=== PATIENT | female | born 1985 | race Caucasian/White ===

== ENCOUNTER 2017-03-11 17:50 | Day surgery (SDC) | payer BC ==
[2017-03-11] VITALS (18 sets, daily range): BP systolic 95–148; BP diastolic 51–82; PULSE 63–82; RESP 16–20; TEMP 95.8–98.6; O2SAT 96–100; Ht 175.3 cm; Wt 64.5 kg
[~2017-03-11] VITALS: Ht 175.3 cm; Wt 64.5 kg
[~2017-03-11 17:50] MED LIST: IBUP-1547 PO; PREN-92 PO
--- NOTE | 2017-03-11 18:00 | NUR ---
ARRIVAL PT AMBULATED TO ROOM 133 ACCOMPANIED BY . INITIAL ASSESSMENT DONE AT THIS TIME. VS STABLE. PT ON RA. WILL START IV. WILL PUT WRITTEN ORDERS PUT IN. WILL CONTINUE TO MONITOR.
[2017-03-11 18:24] LABS: HCT - HEMATOCRIT 40.5 % (36-46); HGB - HEMOGLOBIN 14.1 GM/DL (12-16); MEAN CORPUSCULAR HGB 30.1 UUG (26-34); MEAN CORPUSCULAR HGB CONC(MCHC 34.8 GM/DL (31-37); MEAN CORPUSCULAR VOLUME 86.5 UM3 (80-100); MEAN PLATELET VOLUME 10.4 UM3 (9.4-12.4); RED BLOOD COUNT 4.68 M/MM3 (4.00-5.20); WBC - WHITE BLOOD COUNT 7.3 T/MM3 (4.5-11.0)
[2017-03-11] MEDS ORDERED: LACT1CAP73 (18:32)
[2017-03-11] MEDS ORDERED: LR 1,000 ML IV SCH (18:45)
--- NOTE | 2017-03-11 19:07 | ANESPREOP ---
Anesthesia Record Date and Time DATE: 03/11/17 TIME: 19:05 Pre-Op Diagnosis missed Proposed Surgical Procedure suction D/C NPO since: 1200 Allergies: Coded Allergies: NKDA (Verified Allergy, Mild, 08/07/10) Ht/Wt/BMI Height: 5 ' 9.00 " Weight: 64.500 kg BMI: 21.0 kg/m2 Vital Signs Date Time Temp Pulse Resp B/P Pulse Ox O2 Delivery O2 Flow Rate FiO2 03/11/17 18:26 98.6 71 18 148/82 100 Room Air Medications Inpatient Medications Current Medications Medications (Trade) Dose Ordered Sig/Jessica Start Time Stop Time Status Last Admin Dose Admin Lactated Ringer's (Lactated Ringers) 1,000 ml @ 125 mls/hr Q8H 03/11/17 18:45 03/11/17 18:46 125 MLS/HR Lactobacillus Combination No.4 (Probiotic) 1 Each Capsule, 2 CAP HS, (Reported) Last Taken: on 03/10/17 2200 Vits W-Ca,Fe,Fa(<1MG) ( Vitamins) 1 Tab Tablet, 1 TAB PO DAILY, (Reported) Last Taken: on 03/10/17 0800 Currently on Beta Jose Alberto: No Medical/Surgical History Anesthesia PMH: Reports: Reflux (heartburn), Denies: *Diabetes, Anesthesia Reactions, Cancer, Glaucoma, Malignant Hyperthermia Smoking Status: Never smoker Has pt. smoked today?: No Use Chewing Tobacco?: No Second Hand Exposure: No Substance Use Type: does not use Alcohol Intake: none Past Surgical History Orthopedic Surgeries: No Abdominal Surgeries: No Genitourinary Surgeries: No Cardiac Surgeries: No Endocrine Surgeries: No Reproductive Surgeries: No Neurological Surgeries: No Ear Surgeries: Yes - tubes in ears in first grade Nose Surgeries: No Throat Surgeries: No Other Surgeries: No Anesthesia Adverse Reactions: FOUND none Family Hx of Anesthesia Advers: none Hx of Motion Sickness: No Pertinent Findings Laboratory Tests 03/11/17 18:14 EKG Rhythm: Sinus Rhythm Physical Exam Respiratory: Lungs clear Cardiovascular: FOUND Regular rate, rhythm, FOUND No murmur Airway Assessment Mallampati Score: I TMD: 3 Fingerbreadths Neck Extension: Good Overall Assessment: No Airway Concerns ASA: 2 Plan Anesthesia Plan: TIVA Discussion Discussed risks/options/alternatives of anesthesia and questions answered. Patient consents. Nursing pain assessment noted. Present: Spouse Attestation Statement Prior to the delivery of any anesthetic medication, I examined the patient, developed the plan, obtained the patient's consent and discussed the risk and benefits of the procedure with the patient/guardian. HALEY PRATHER CRNA Mar 11, 2017 19:07
[2017-03-11] MEDS ORDERED: PROPOFOL 500mg 50 ML IV ONE (19:12)
[2017-03-11] MEDS ORDERED: PROPOFOL 200mg 0 ML IV ONE (19:12)
[2017-03-11] MEDS ORDERED: FENTANYL 250mcg/5ml INJECTION ONE (19:15)
[2017-03-11] MEDS ORDERED: MIDAZOLAM 2mg/2ml INJECTION ONE (19:15)
[2017-03-11] MEDS ORDERED: KETAMINE 500mg/10ml INJECTION ONE (19:16)
--- NOTE | 2017-03-11 19:37 | NUR ---
OR Pt. to OR via cart accompanied by Shahla Finley RN. to waiting area.
--- NOTE | 2017-03-11 20:04 | GYNOPNOTE1 ---
FILM EXAMINER Postoperative Note Date of Operation: 03/11/17 Preoperative Diagnosis: Incomplete Postoperative Diagnosis: Same as Preoperative Procedure: Suction D&C Surgeon: Frdedie Alberto MD Anesthesia Provider: Daryl Simental CRNA Anesthesia Type: TIVA Estimated Blood Loss: minimal FREDDIE ALBERTO MD Mar 11, 2017 20:04
[2017-03-11] MEDS ORDERED: IBUP-1724 PO (20:08)
[2017-03-11] MEDS ORDERED: MORPHINE SULFATE 4 MG SYRINGE IV PRN (20:15)
[2017-03-11] MEDS ORDERED: HYDROCODONE/APAP 5 mg/325 mg TABLET PO PRN (20:15)
[2017-03-11] MEDS ORDERED: ONDANSETRON 4mg/2ml INJECTION IV PRN (20:15)
[2017-03-11] MEDS ORDERED: IBUPROFEN 200 MG TABLET PO PRN (20:15)
--- NOTE | 2017-03-11 20:24 | ANESPO ---
Post-Op Note Date 03/11/17 Time: 20:24 Status Pt Participated in Evaluation: Pt participated in person Vital Signs Date Time Temp Pulse Resp B/P Pulse Ox O2 Delivery O2 Flow Rate FiO2 03/11/17 20:08 97.0 69 20 95/51 100 Mask 6.00 Cardiovascular Function: Regular pulse Mental Status: Alert/oriented Pain Level Intensity: 0 Hydration: Taking po fluids Complications during Recovery None apparent Follow-Up Instructions Instructions Per Surgeon HALEY PRATHER CRNA Mar 11, 2017 20:24
--- NOTE | 2017-03-11 20:29 | NUR ---
ORDERS VERBAL ORDERS RECEIVED FROM JERAMIE URIBE TO GIVE PT 25MG DEMEROL IV X1.
[2017-03-11] MEDS ORDERED: MEPERIDINE 100 mg/ml VIAL IV ONE (20:30)
--- NOTE | 2017-03-11 20:45 | NUR ---
Return Pt. returned from OR via cart accompanied by Shruthi MCGINNIS. Pt. awake. Shaking, hot blanket given and shaking quit. Denies pain. No blood on v-pad.
--- NOTE | 2017-03-11 23:20 | NUR ---
Discharge Pt. met surgical discharge criteria. Medications confirmed and finalized per phone order Dr. Quan. Reviewed discharge instructions and gave packet to pt. STAN cordero.
--- NOTE | 2017-03-11 23:25 | NUR ---
Discharge Pt. discharged home with spouse. Ambulatory; accompanied to door by RN.
--- OUTSIDE RECORDS SUMMARY | 2017-03-12 09:53 | XMS REPORT | Continuity of Care Document ---
Author Author [facility] Organization [facility] Address Unknown Phone Unavailable Support Name Relationship Address Phone KENRICK ALBERTO MD Caregiver [address] [place] [address] [address] [place] [address] Unavailable KENRICK ALBERTO MD Caregiver [address] [place] [address] [address] [place] [address] Unavailable BRIANA MARINELLI Next Of Kin [address] [phone] Insurance Providers Guarantor Verito Marinelli Address [address] [place] [address] Payer [facility] Policy Number [id number] Subscriber's Name YvesMiguelBriana Kathe Relationship 01 Spouse Group Number [id number] Advance Directives Directive Response Recorded Date/Time Ordered Resuscitation Status Full Code 03/11/17 6:02pm Resuscitation Documents on File No 03/11/17 6:27pm DPOA for Healthcare Only No 03/11/17 6:27pm Living Will Yes 03/11/17 6:27pm Advanced Directive or Resuscitation Comments FULL CODE 03/11/17 6:27pm Problems Active Problems Medical Problem Onset Date Status 01/10/2015 Acute Medications Current Home Medications Medication Dose Units Route Directions Days Qty Instructions Start Date Ibuprofen 200 Mg Tablet 400-600 Mg Oral Every 6 Hours as needed for Pain 1 Tablet 03/11/17 Lactobacillus Combination No.4 (Probiotic) 1 Each Capsule 2 Cap Bedtime 03/11/17 Vits W-Ca,Fe,Fa(<1MG) ( Vitamins) 1 Tab Tablet 1 Tab Oral Daily 08/07/10 Social History Social History Problem Response Recorded Date/Time Onset Date Status Reason for Hospitalization D&C procedure 03/11/2017 10:58pm Not Applicable Not Applicable Hx Substance Use No 01/09/2015 3:27am Not Applicable Not Applicable Hx Alcohol Use No 08/07/2010 4:38am Not Applicable Not Applicable Has the pt used tobacco in the last 12 months No 03/11/2017 6:29pm Not Applicable Not Applicable Query Response Start Date Stop Date Smoking Status Never smoker Hospital Discharge Instructions Instructions: Care Instructions: I was in the hospital because (patient own words): "GET CLEANED OUT FROM HAVING A MISCARRIAGE" Discharge Diet: regular Discharge Activity: normal Follow Up Appointments: 2-3wks Pending Lab / Results: Will review at f/u apt Expected Signs/Symptoms: per instruction sheet Notify Physician If: per instruction sheet During Business Hours:: Please call the physician's office at [phone] After Business Hours:: Please call [phone] and have the expeller operator page the physician. Pain Management/Treatment: per instruction sheet Pain Scale Utilized to Educate Patient: 0-10 Pain Scale Wound/Incision Care: n/a Condition at time of discharge: Good Plan of Care Discharge Date 03/11/17 11:25pm Instructions/Education Provided Dilation and Curettage (DC) Prescriptions See Medication Section Functional Status Query Response Date Recorded Mobility Status Ambulatory March 11, 2017 6:33pm Assistive Devices Standard Walker March 11, 2017 6:33pm Activity Limitations None March 11, 2017 6:33pm Feeding Ability Independent March 11, 2017 6:33pm Toileting Ability Independent March 11, 2017 6:33pm Grooming Ability Independent March 11, 2017 6:33pm Dressing Ability Independent March 11, 2017 6:33pm Driving Ability Independent March 11, 2017 6:33pm Housework Ability Independent March 11, 2017 6:33pm Meal Preparation Ability Independent March 11, 2017 6:33pm Stair Climbing Ability Independent March 11, 2017 6:33pm Ability to complete ADL's impeded by Impaired Mobility March 11, 2017 6:33pm Cognitive/Perceptual Impairments None March 11, 2017 6:33pm Preferred Method of Learning Reading March 11, 2017 6:33pm Allergies, Adverse Reactions, Alerts Allergen Type Severity Reaction Status Last Updated NKDA Allergy Mild Active 08/07/10 Immunizations Query Response on File Recorded Date/Time Hx Influenza Vaccination No 03/11/17 6:29pm Hx Pneumococcal Vaccination No 03/11/17 6:29pm Hx Influenza Vaccination No 03/11/17 6:29pm Vital Signs Acute Vital Signs Vital Response Date/Time Temperature (Fahrenheit) 95.8 deg F (96.8 - 99.1) 03/11/2017 10:44pm Temperature (Calculated Celsius) 35.62973 degrees C (36.0 - 37.3) 03/11/2017 10:44pm Temperature Source Oral 03/11/2017 10:44pm Pulse Rate (adult) 63 bpm (60 - 100) 03/11/2017 10:59pm Respiratory Rate 16 breaths/min (10 - 20) 03/11/2017 10:59pm O2 Sat by Pulse Oximetry 96 % (90 - 100) 03/11/2017 10:59pm Oxygen Delivery Method Room Air 03/11/2017 10:59pm Oxygen Delivery Method Room Air 03/11/2017 8:35pm Oxygen Flow Rate 6.00 L/min 03/11/2017 8:10pm Blood Pressure 111/67 mm Hg 03/11/2017 10:59pm Blood Pressure Source Automatic Cuff 03/11/2017 10:59pm Height (Feet) 5 feet 03/11/2017 6:26pm Height (Inches) 9.00 inches 03/11/2017 6:26pm Weight (Kilograms) 64.500 kg 03/11/2017 6:26pm Body Mass Index (BMI) 21.0 03/11/2017 6:26pm Results Laboratory Results Test Name Result Units Flags Reference Collection Date/Time Result Date/ Time Comments White Blood Count 7.3 T/MM3 4.5-11.0 03/11/2017 6:14pm 03/11/2017 6: 24pm Red Blood Count 4.68 M/MM3 4.00-5.20 03/11/2017 6:14pm 03/11/2017 6: 24pm Hemoglobin 14.1 GM/DL 12-16 03/11/2017 6:pm 03/11/2017 6:24pm Hematocrit 40.5 % 36-46 03/11/2017 6:03/11/2017 6:24pm Mean Corpuscular Volume 86.5 UM3 80-100 03/11/2017 6:pm 03/11/2017 6: 24pm Mean Corpuscular Hemoglobin 30.1 UUG 26-34 03/11/2017 6:pm 2016 6:24pm Mean Corpuscular Hemoglobin Concent 34.8 GM/DL 31-37 03/11/2017 6:pm 03/11/2017 6:24pm RDW Standard Deviation 37.2 FL 36.9-50.2 03/11/2017 6:14pm 03/11/2017 6 :24pm Platelet Count 224 T/MM3 130-400 03/11/2017 6:14pm 03/11/2017 6:24pm Mean Platelet Volume 10.4 UM3 9.4-12.4 03/11/2017 6:14pm 03/11/2017 6: 24pm Procedures No known history of procedures. Encounters Encounter Location Arrival/Admit Date Discharge/Depart Date Attending Provider Registered [facility] Day Care [facility] 03/11/17 5:50pm KENRICK ALBERTO MD
--- OUTSIDE RECORDS SUMMARY | 2017-03-12 09:53 | XMS REPORT | Continuity of Care Document ---
Author Author [facility] Organization [facility] Address Unknown Phone Unavailable Support Name Relationship Address Phone KENRICK ALBERTO MD Caregiver [address] [place] [address] [address] [place] [address] Unavailable KENRICK ALBERTO MD Caregiver [address] [place] [address] [address] [place] [address] Unavailable BRIANA MARINELLI Next Of Kin [address] [id number] Insurance Providers Guarantor Verito Marinelli Address [address] [place] [address] Payer [facility] Policy Number [id number] Subscriber's Name YvesMiguelBriana Kathe Relationship 01 Spouse Group Number [id number] Advance Directives Directive Response Recorded Date/Time Ordered [...] Hours:: Please call the physician's office at [phone] After Business Hours:: Please call [phone] and have the paper cup machine operator page the physician. Pain Management/Treatment: per instruction sheet Pain Scale Utilized to Educate Patient: 0-10 Pain Scale Wound/Incision Care: n/a Condition at time of discharge: Good Plan of Care Discharge Date 03/11/17 11:25pm Disposition 01 DISCHARGED HOME, SELF-CARE Instructions/Education Provided Dilation and Curettage (DC) Prescriptions See Medication Section Care Plan and Goals See Discharge Instructions Section Functional Status Query Response Date Recorded [...] - 99.1) 03/11/2017 10:44pm Temperature (Calculated Celsius) 35.17138 degrees C (36.0 - 37.3) 03/11/2017 10:44pm [...] 03/11/2017 6:24pm Hematocrit 40.5 % 36-46 03/11/2017 6:pm 03/11/2017 6:24pm Mean Corpuscular Volume 86.5 UM3 80-100 03/11/2017 6:14pm 03/11/2017 6: 24pm Mean Corpuscular Hemoglobin 30.1 UUG 26-34 03/11/2017 6:14pm 2016 6:24pm Mean Corpuscular Hemoglobin Concent 34.8 GM/DL 31-37 03/11/2017 6:pm 03/11/2017 6:24pm RDW Standard Deviation 37.2 FL 36.9-50.2 03/11/2017 6:14pm 03/11/2017 6 :24pm Platelet Count 224 T/MM3 130-400 03/11/2017 6:14pm 03/11/2017 6:24pm Mean Platelet Volume 10.4 UM3 9.4-12.4 03/11/2017 6:14pm 03/11/2017 6: 24pm Procedures No known history of procedures. Encounters Encounter Location Arrival/Admit Date Discharge/Depart Date Attending Provider Discharged Inpatient (obs) [facility] 03/11/17 5:50pm 03/11/17 11 :25pm KENRICK ALBERTO MD
--- NOTE | 2017-03-12 11:23 | OPNOTEF ---
DATE OF SURGERY: 03/11/2017 PREOPERATIVE DIAGNOSIS: 32-year-old white female incomplete AB. POSTOPERATIVE DIAGNOSIS: same PROCEDURE: Suction D&C. EBL: Minimal ANESTHESIA: TIVA by Daryl Simental CRNA SURGEON: Freddie Quan MD COMPLICATIONS: None INDICATION This patient was seen as an add-on appointment to my office this afternoon. She has been bleeding for four days and it is getting worse. She is now soaking through several pads an hour. Incomplete AB was confirmed and so she was set up for a D&C this evening as soon as she was 8 hours NPO. DESCRIPTION OF PROCEDURE After adequate anesthesia the patient was prepped and draped in the low lithotomy position. A heavy weighted speculum was placed posteriorly and an anterior retractor was used to visualize the cervix which was grasped at the 12 o'clock position. Cervix was dilated to 21 Walker and then a #7 flexible curette was introduced and the endometrial cavity was curettaged. A small amount of tissue was obtained. Sharp curette was then used to ensure that we were down to the appropriate layer. Additional pass was made with a suction curette. This was repeated x1. Then the procedure was complete and all instruments were removed and the patient went to recovery room in stable condition. JOSESITO
== END 2017-03-11 23:25 | disposition home or self-care (01) ==
LOC: UNDOADMOB 17:50 → SRG 17:50 → SCU 17:50 → UNDODISOB 23:25 → EDSTATUS 03-12 09:49
PROVIDERS: ATTEND Obstetrics & Gynecology
DX: O03.4 Incomplete spontaneous abortion without complication (principal); J30.2 Other seasonal allergic rhinitis
CPT/HCPCS: 59812; 85027; 96360; J2250; J2405; J2704; J3010; J7120

== ENCOUNTER 2018-01-08 16:42 | Inpatient (IN) ==
--- OUTSIDE RECORDS SUMMARY | 2018-01-08 16:46 | External Medical Summary | Referral Summary ---
:1985 Author Organization [facility] Address [address] [place] [address] Care Team Providers Name Role Phone No PCP, [facility] Primary Care Physician Encounter [facility] [id number] Date(s): 07/24/16 - 07/24/16 [facility] [address] [place] [address] - us Discharge Diagnosis: Pain, abdominal Discharge Disposition: 01-Home or Self Care Attending Physician: Provider, Immediate Care Attending Physician: Varinder Lowe APRN Admitting Physician: Provider, Immediate Care Vital Signs Most recent to oldest [Reference Range]: 1 Temperature Oral [35.8-37.3 degC] 36.8 degC (07/24/16 10:46 AM) Peripheral Pulse Rate [60-100 bpm] 65 bpm (07/24/16 10:46 AM) Blood Pressure [90-140/60-90 mmHg] 155/93 mmHg *HI* (07/24/16 10:46 AM) SpO2 99 % (07/24/16 10:46 AM) Problem List No data available for this section Allergies, Adverse Reactions, Alerts No Known Medication Allergies Medications Antifungal Antifungal, 0 Refill(s) Start Date: 11/09/15 Status: OrderedFlonase sprays, Nasal, Daily, 0 Refill(s) Start Date: 07/24/16 Status: OrderedHeather 0.35 mg oral tablet 0.35 mg 1 tabs, Oral, Daily, 0 Refill(s) Start Date: 10/28/15 Status: OrderedZyrTEC Daily, 0 Refill(s) Start Date: 07/24/16 Status: Ordered Results No data available for this section Immunizations No data available for this section Procedures No data available for this section Social History Social History Type Response Smoking Status Never smoker Assessment and Plan Extracted from: Title: Office Visit Note Author: Varinder Lowe APRN Date: 07/24/16 Assessment/Plan 1.Pain, abdominal Instructed patient on medication, use, common side effects, and administration. Discussed proper OTC medication, including [ Tylenol or ibuprofen], for symptomatic relief. Instructed patient if symptoms worsen or new symptoms arise to seek medical attention here or at the ER. Instructed patient if symptoms do not improve follow up with PCP in 2-3 days. Patient voiced unde rstanding and agreed with treatment plan. Patient dismissed in stable condition.
--- OUTSIDE RECORDS SUMMARY | 2018-01-08 16:46 | External Medical Summary | Continuity of Care Document ---
:1985 Author Organization [facility] Address [address] [place], [place] [id number] Phone Support Name Relationship Address Phone Indio Marinelli spouse [address] [facility] [phone] [place] [address] Allergies, Adverse Reactions, Alerts Substance Reaction Severity Status No Known Drug Allergies Unknown Active Medications Medication Instructions Dosage Effective Dates Status Comments (start - stop) PREVACID (unknown take 1 capsule by - Active strength) oral route every day before a meal Probiotic 10 - Active billion cell capsule 28 mg take 1 tablet by Not Available - Active iron-800 mcg oral route every tablet day Zyrtec-D 5 mg-120 take 1 tablet by Not Available - Active mg tablet,extended oral route every 12 release hours Problems Condition Effective Dates (start - stop) Clinical Status 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 brim 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 exam (general) - (routine) w/o abn findings Encounter for suprvsn of normal - , third trimester 32 weeks gestation of - 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 Encntr screen for infections w sexl - mode of transmiss Encounter for screening for oth - infec/parastc diseases Encounter for suprvsn of normal - , first trimester Encounter for screening of - mother 10 weeks gestation of - 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 Threatened Encntr for brim stiffener exam (general) (routine) w/o abn findings Pap Smear Screening, Cervix - Pap Smear Screening, Cervix - Encounter for suprvsn of normal - , second trimester 24 weeks gestation of - Encounter for suprvsn of normal - , second trimester 14 weeks gestation of - Encounter for suprvsn of normal - , second trimester Encounter For Screening For - Malformations 20 weeks gestation of - Encounter for suprvsn of normal - , second trimester 18 weeks gestation of - Encounter for suprvsn of normal - , second trimester 20 weeks gestation of - Encounter for suprvsn of normal - , third trimester 34 weeks gestation of - Encounter for suprvsn of normal - , third trimester 30 weeks gestation of - Encounter for suprvsn of normal - , third trimester 28 weeks gestation of - Active Procedures Procedure Date OB Visit No Charge Results Test Name Date and Time Measure Units Reference Range Abnormal Flag Comments Unknown Advance Directives Directive Yes / No Effective Date File Name Unknown Encounters Encounter Practice Location Reason(s) Diagnoses Date Provider Care Team Description For Visit Members Rosalina Colmenares Encounter for Nov- Pastora Referring In Womens suprvsn of normal 9-201 Elisabeth. Provider: Health CT, , third 8 700 [facility] Box weeks Medical Kadeem Delacruz, 1522, gestation of [place] Amna [place], Everardo Goel [facility], 120, [place] [id number], [facility] 120, Darrian CHILD, tel:[phone] [place] [address] , . [id number]. tel: tel:[phone] Rosalina Colmenares Encounter for Oct- Kadeem Referring In Womens suprvsn of normal 6-201 Freddie. 700 Provider: Health CT, , third 7 Medical Freddie PO Box [email or web address] weeks Center Kadeem R, 1522, gestation of Ever[place] Goel 700 [place], 120, Medical [place]rian [facility] [id number], [facility], [place] [id number] [place], tel:+ , . [place] tel: [phone]. [id number] tel:[phone] Rosalina Colmenares Encounter for Dec-1 Kadeem Referring In Womens suprvsn of normal 2-201 Freddie. 700 Provider: Health PA, , third 7 Medical Freddie PO Box [email or web address] weeks Center Kadeem R, 1522, gestation of Everardo Goel, 120, Medical [place] [facility] [id number], [place], [facility] 120, [place] [id number] [place], tel: , [place]. [place], tel: [phone]. [id number] tel:[phone] Rosalina Colmenares Encounter for Nov-2 Kadeem Referring In Womens suprvsn of normal 8-201 Freddie. 700 Provider: Health PEDRO, , third 7 Medical Freddie PO Box [email or web address] weeks Center Kadeem R, 1522, gestation of Everardo Goel, 120, Medical [place] [facility] [id number], [place], [facility] 120, [place] [id number] [place], tel: , [place]. [place] tel: [phone]. [id number] tel:[phone] Rosalina Colmenares Encounter for Nov-0 Kadeem Referring In Womens suprvsn of normal 2-201 Freddie. 700 Provider: Wendy VASQUEZ, , second 7 Medical Freddie PO Box [id number] weeks Center Kadeem R, 1522, gestation of Everardo Goel, 120, Medical Darrian [facility] [id number], [place], [facility] 120, [place] [id number] [place], tel: , [place]. [place] tel: [phone]. [id number] tel:[phone] Rosalina Colmenares Encounter for Oct-0 Kadeem Referring In Womens suprvsn of normal 5-201 Freddie. 700 Provider: Health PEDRO, , second 7 Medical Freddie PO Box [email or web address] weeks Center Kadeem R, 1522, gestation of Everardo Goel, 120, Medical [place] [facility] [id number], [place], Ever[place] 120, [place] [id number] [place], tel: , . [place] tel:[phone]. [id number] tel:[phone] Rosalina Colmenares Encounter for Oct-0 Kadeem Referring In Womens Ultrasound suprvsn of normal 5-201 Jamul. 700 Provider: Wendy VASQUEZ, , second 7 [facility] trimesterEncounte [place] Kadeem R, 1522, r For Everardo Goel, Screening For 120, Medical [place], [id number] Darrian [place] [id number], weeks gestation MATEUSZ, Everardo 120, [place] of [id number] [place], tel: , [place]. [place], tel: [phone]. [id number] tel:[phone] Rosalina Colmenares Encounter for Sep-2 Kadeem Referring In Womens suprvsn of normal 1-201 Jamul. 700 Provider: Wendy VASQUEZ, , second 7 [facility] [id number] weeks Center Kadeem R, 1522, gestation of Everardo Goel, 120, Medical [place] [facility] [id number], [place], [place] 120, [place] [id number] [place], tel: , [place]. [place] tel: [phone]. [id number] tel:[phone] Rosalina Colmenares Encounter for Aug-2 Kadeem Referring In Womens suprvsn of normal 4-201 Jamul. 700 Provider: Wendy VASQUEZ, , second 7 [facility] [id number] weeks Center Kadeem R, 1522, gestation of Everardo Goel, 120, Medical [place] [facility] [id number], [place], [place] 120, [place] [id number] [place], tel: , [place]. [place] tel: [phone]. [id number] tel:[phone] Rosalina Colmenares Encntr screen for Jericho-2 Kadeem Referring In Womens infections w sexl 6-201 Jamul. 700 Provider: Wendy VASQUEZ, mode of 7 [facility] transmissEncounte [place] Kadeem R, 1522, r for screening Everardo Goel, for oth 120, Medical MATEUSZ, infec/parastc [place] [id number], diseasesEncounter [place], Ever[place] 120, [place] for suprvsn of [id number] [place], tel: normal , , [place]. [place], first tel: [phone]. trimesterEncounte [id number] tel: r for [phone] screening of weeks gestation of Associates [place]rian Incomplete Apr-1 Kadeem Referring In Womens spontaneous Jamul. 700 Provider: Wendy VASQUEZ, without 7 Medical Jamul PO Box complication Center Kadeem Delacruz, 1522, , [address], 120, Medical MATEUSZ, [facility] [id number], [place], [facility] 120, [place] [id number] [place], tel: , [place]. [place] tel: [phone]. [id number] tel:[phone] Rosalina Colmenares Incomplete Apr-1 Kadeem Referring In Womens spontaneous Jamul. 700 Provider: Wendy VASQUEZ, without 7 Medical [facility] Box complication Center Kadeem Delacruz, 1522, , [place] [address] [place], [facility], Medical Darrian [facility] [id number], [place], [facility] 120, [place] [id number] [place], tel: , [place]. [place] tel: [phone]. [id number] tel:[phone] Rosalina Colmenares Threatened Apr-1 Kadeem Referring In Womens Jamul. 700 Provider: Wendy VASQUEZ, 7 Medical Jamul PO Box [place] Kadeem Delacruz, 1522, , [address], 120, Medical [place] [facility] [id number], [place], [facility] 120, [place] [id number] [place], tel: , . [place] tel: [phone]. [id number] tel:[phone] Rosalina Colmenares Encntr for brim stiffener Nov-0 Matos Referring In Womens exam (general) 2-201 Elvira. Provider: Health PEDRO, (routine) w/o abn 6 700 [facility] Box findingsPap Smear Medical Kadeem Delacruz, 1522, Screening, Cervix Center [facility] Dr [place], [facility], 120, [place] [id number], Dar[place], [facility] 120, Dar[place] CHILD, tel:[phone] [place] , [place]. [id number]. tel: tel: [phone] Rosalina Colmenares Encntr for brim stiffener Aug- Kadeem Referring In Womens exam (general) 1- Jamul. 700 Provider: Wendy VASQUEZ, (routine) w/o abn 5 Medical [facility] Box findingsPap Smear Center Carlo Cherry, 1522, Screening, Cervix , [facility] Amna Colón, 120, Medical [place] [facility] [id number], [place], [facility] 120, [place] [id number] [place], tel: , . [place], tel: [phone]. [id number] tel:[phone] Rosalina Colmenares Kadeem Referring In Womens 9-201 Jamul. 700 Provider: Wendy VASQUEZ, 5 [facility] Box [place] Kadeem Delacruz 1522, Dr Everardo Amna Colón, 120, Medical [place] [facility] [id number], [place], [facility] 120, [place] [id number] [place], tel: , [place]. [place], tel: [phone]. [id number] tel:[phone] Rosalina Colmenares Kadeem Referring In Womens 6-201 Jamul. 700 Provider: Wendy VASQUEZ, 4 [facility] Box [place] Kadeem Delacruz 1522, Dr Everardo Amna Colón, 120, Medical Darrian [facility] [id number], [place], [facility] 120, [place] [id number] [place], tel: , . [place], tel: [phone]. [id number] tel:[phone] Rosalina Colmenares Aug- Kadeem In Womens 6-201 Jamul. 700 Wendy VASQUEZ, 0 [facility] PO Box Center 1522, Everardo Goel, 120, [place] CHILD [id number], [place], [place] [id number] tel: , . tel: [phone] Family History Family Member Diagnosis Age At Onset Maternal Grandmother Diabetes mellitus Maternal Grandfather Congestive Heart Failure Maternal grandmother Congestive Heart Failure Immunizations Vaccine Date Status Comments Tdap completed Source: New Immunization Record Influenza, injectable, completed Source: New Immunization Record quadrivalent, preservative free, 3 yrs or older Influenza, seasonal, injectable, completed Source: New Immunization Record preservative free, 3 yrs or older Tdap completed Source: New Immunization Record Influenza, injectable, completed Source: New Immunization Record quadrivalent, preservative free, 3 yrs or older Payers Payer name Insurance type Covered green party ID Authorization(s) [facility] [id number] [facility] BL [id number] [facility] [place] BL [id number] [facility] [place] [id number] [facility] [place] [id number] [facility] BL [id number] Social History Type Description Quantity Date Captured Alcohol Use Details No Caffeine Use Details Unknown Tobacco Use Status Unknown Smoking Status Never smoker Vital Signs Date / Height Weight BMI Pulse Blood Temperature Respiratory Body Head BMI Time: Rate Pressure Rate Surface Circumference percentile Area Unknown Chief Complaint And Reason For Visit Unknown Chief Complaint And Reason For Visit Reason For Referral Reason For Referral Unknown Plan Of Care Date Type Action Status Appointment Elaina Marinelli BOOKED Future Order: Lab Order Pap Smear With HPV Reflex If ASCUS Ordered (WPMPap1) Future Order: Lab Order Pap Smear With HPV Reflex If ASCUS Ordered (WPMPap1) Future Order: Radiology Order Complete OB Ultrasound > 14 Ordered Weeks ([id number]) Date Type Problem Goal Intervention Status Start Date Unknown. History Of Present Illness Encounter Date Complaint History Of Present Illness This patient has no known history of present illness Functional Status Encounter Date Functional Assessment Cognitive Assessment Unknown Medications Administered Medication Instructions Dosage Effective Dates (start - stop) Status Comments Drug Treatment Unknown Instructions Date Instruction Additional Information environmental / work hazards travel tobacco (ask, advise, assess, assist and arrange) alcohol illicit / recreational drugs use of any medications (including supplements, vitamins, herbs, OTC drugs) smoking counseling domestic violence seat belt use childbirth classes / hospital facilities hospital registration genetic testing Zika virus assessment & precautions new ob handbook [facility] docs HIV and other routine tests risk factors identified by history anticipated course of care nutrition and weight gain counseling, special diet toxoplasmosis precautions (cats / raw meat) sexual activity exercise indications for ultrasound influenza vaccine
--- OUTSIDE RECORDS SUMMARY | 2018-01-08 16:46 | External Medical Summary | Continuity of Care Document ---
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 Encntr screen for infections w sexl - mode of transmiss Encounter for screening for oth - infec/parastc diseases Encounter for suprvsn of normal - , first trimester Encounter for screening of - mother 10 weeks gestation of - Encounter for suprvsn of normal - , third trimester 32 weeks gestation of - 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 Threatened 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) (routine) w/o abn findings Pap [...] suprvsn of normal - , third trimester Encounter For Screening For - Streptococcus B 36 weeks gestation of - Encounter for suprvsn of normal - , third trimester 28 weeks gestation of - Active Procedures Procedure Date OB Visit No Charge - 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 700 Provider: Health PA, , third 8 Medical Freddie [facility] Kadeem R, 1522, r For Ever[place] Goel 700 [place], Screening For 120, Medical [place], Streptococcus B[address] [id number], weeks gestation MATEUSZ Everardo 120, [place] of [id number] Dar[place], tel: , [place], [address] tel: [phone]. [id number] tel:[phone] Rosalina Colmenares Encounter for Hernan-0 Pastora Referring In Womens suprvsn of normal 9-201 Elisabeth. Provider: Health PEDRO, , third 8 700 Fredide PO Box weeks Medical Kadeem Delacruz, 1522, gestation of Center Amna Colón, , Everardo [facility], 120, Center [id number], Dar[place], [facility] 120, [place] CHILD, tel: [phone] [place], , [place]. [id number]. tel: tel: [phone] Rosalina Colmenares Encounter for Dec-2 Kadeem Referring In Womens suprvsn of normal 6-201 Freddie. 700 Provider: Health PEDRO, , third 7 Medical Freddie PO Box [email or web address] weeks Center Kadeem Delacruz, 1522, gestation of Everardo Goel, 120, Medical Darrian [facility] [id number], [place], [facility] 120, [place] [id number] [place], tel: , [place]. [place], tel: [phone]. [id number] tel:[phone] Rosalina Colmenares Encounter for Dec-1 Kadeem Referring In Womens suprvsn of normal 2-201 Freddie. 700 Provider: Health PEDRO, , third 7 Medical Freddie PO Box weeks Center Kadeem Delacruz, 1522, gestation of Everardo Goel, 120, Medical Darrian [facility] [id number], [place], [facility] 120, [place] [id number] [place], tel: , [place]. [place], tel: [phone]. [id number] tel:[phone] Rosalina Colmenares Encounter for Nov-2 Kadeem Referring In Womens suprvsn of normal 8-201 Freddie. 700 Provider: Health PEDRO, , third 7 Medical Freddie PO Box [id number] weeks Center Kadeem Delacruz, 1522, gestation of Everardo Goel, 120, Medical [place] CHILD, [place] [id number], [place], [facility] 120, [place] [id number] [place], tel: , [place]. [place] tel: [phone]. [id number] tel:[phone] Rosalina Colmenares Encounter for Nov-0 Kadeem Referring In Womens suprvsn of normal 2-201 Polk. 700 Provider: Health PA, , second 7 Medical Freddie PO Box [email or web address] weeks Center Kadeem R, 1522, gestation of Everrado Goel, 120, Medical [place] CHILD, [place] [id number], [place], Everardo 120, [place] [id number] [place], tel:+3162 , [place]. [place], tel: [phone]. [id number] tel:[phone] Rosalina Colmenares Encounter for Oct-0 Kadeem Referring In Womens suprvsn of normal 5-201 Freddie. 700 Provider: Health PA, , second 7 Medical Freddie PO Box [id number] weeks Center Kadeem R, 1522, gestation of Everardo Goel, 120, Medical Darrian [facility] [id number], [place], Everardo 120, [place] [id number] Dar[place], tel:+2 , [place]. [place], tel: [phone]. [id number] tel:[phone] Rosalina Colmenares Encounter for Oct-0 Kadeem Referring In Womens Ultrasound suprvsn of normal 5-201 Polk. 700 Provider: Health PA, , second 7 Medical Freddie PO Box trimesterEncounte Center Kadeem R, 1522, r For Everardo Goel, Screening For 120, Medical MATEUSZ, [id number] [facility] [id number], weeks gestation [place], Everardo 120, [place] of [id number] [place], tel:+ , [place]. [place], tel: [phone]. [id number] tel:[phone] Rosalina Colmenares Encounter for Sep-2 Kadeem Referring In Womens suprvsn of normal 1-201 Freddie. 700 Provider: Health PA, , second 7 Medical Freddie PO Box [id number] weeks Center Kadeem R, 1522, gestation of Everardo Goel, 120, Medical Darrian [facility] [id number], [place], Ever[place] 120, [place] [id number] [place], tel:+3162 , [place]. [place], tel: [phone]. [id number] tel:[phone] Rosalina Colmenares Encounter for Aug-2 Kadeem Referring In Womens suprvsn of normal 4-201 Polk. 700 Provider: Health PEDRO, , second 7 Medical Freddie PO Box [id number] weeks Center Kadeem Delacruz, 1522, gestation of Everardo Goel, 120, Medical Darrian [facility] [id number], [place], Ever[place] 120, [place] [id number] Darrian, tel: , [place]. [place], tel: [phone]. [id number] tel:[phone] Rosalina Colmenares Encntr screen for Jericho-2 Kadeem Referring In Womens infections w sexl 6-201 Polk. 700 Provider: Health PEDRO, mode of 7 Medical Freddie PO Box transmissEncounte [place] Kadeem Delacruz, 1522, r for screening Everardo Goel, for oth 120, Medical [place], infec/[facility]astc [facility] [id number], diseasesEncounter [place], Ever[place] 120, [place] for suprvsn of [id number] Darrian, tel: normal , , [place]. [place], first tel:[phone]. trimesterEncounte [id number] tel: r for [phone] screening of [id number] weeks gestation of Rosalina Colmenares Incomplete Apr-1 Kadeem Referring In Womens spontaneous 8-201 Polk. 700 Provider: Health PEDRO, without 7 Medical Freddie PO Box complication Center Kadeem Delacruz, 1522, Everardo Goel, 120, Medical Darrian [facility] [id number], [place], [place] 120, [place] [id number] Dar[place], tel: , [place]. [place], tel: [phone]. [id number] tel:[phone] Rosalina Colmenares Incomplete Apr-1 Kadeem Referring In Womens spontaneous 8-201 Polk. 700 Provider: Health PEDRO, without 7 Medical Freddie PO Box complication Center Kadeem Delacruz, 1522, Everardo Goel, 120, Medical Darrian [facility] [id number], [place], Ever[place] 120, [place] [id number] [place], tel: , [place]. [place] tel: [phone]. [id number] tel:[phone] Rosalina Wayne Feb- Kadeem Referring In Womens 7- Polk. 700 Provider: Wendy VASQUEZ, 7 [facility] Box [place] Kadeem Delacruz, 1522, , Everardo [facility] [place], 120, Medical Darrian [facility] [id number], [place], [facility] 120, [place] [id number] Darrian, tel:+ , [place]. [place], tel: [phone]. 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 Provider: Health PEDRO, (routine) w/o abn [address] [place] [address] findingsPap Smear [facility] Kadeem Delacruz, 1522, Screening, Cervix Center [facility] Dr [place], [facility], 120, [place] [id number], [place], [facility] 120, [place] Darrian CHILD, tel: [phone] [place], , [place]. [id number]. tel: tel:[phone] Rosalina Carvalhor for graduate research assistant Oct-2 Kadeem Referring In Womens exam (general) Polk. 700 Provider: Wendy VASQUEZ, (routine) w/o abn 5 [facility] findingsPap Smear Center Carlo J, 1522, Screening, Cervix , [address], 120, Medical Darrian [facility] [id number], [place], [facility] 120, [place] [id number] Darrian, tel: , [place]. [place], tel: [phone]. [id number] tel:[phone] Rosalina Colmenares Hernan-2 Kadeem Referring In Womens 9-201 Polk. 700 Provider: Wendy VASQUEZ, 5 [facility] Box [place] Kadeem Delacruz, 1522, , [place] [address] [place], 120, Medical Darrian [facility] [id number], [place], Everardo 120, [place] [id number] Darrian, tel:3162 , [place]. [place], tel: [phone]. [id number] tel:[phone] Rosalina Colmenares Nov-0 Kadeem Referring In Womens 6-201 Polk. 700 Provider: Health PA, 4 Medical [facility] Box [place] Kadeem R, 1522, , Everardo 700 [place], 120, [facility], [facility] [id number], [place], [place] [address], [id number] Darrian, tel: , . [place], [address] tel: [phone]. [id number] tel:[phone] Rosalina Colmenares Aug- Kadeem In Womens 6-201 Polk. 700 Health PA, 0 Medical Box Center [address], , Everardo Colón, 120, [place], Darrian, [id number], [place], [id number] tel: , . [phone] tel: [phone] Family History Family Member Diagnosis Age At [...] Insurance type Covered green party ID Authorization(s) [facility] [id number] [facility] [place] [id number] [facility] [place] [id number] [facility] [place] [id number] [facility] [place] [id number] [facility] [id number] Social History Type Description Quantity Date Captured Alcohol Use Details No Caffeine Use Details Unknown Tobacco Use Status Unknown Smoking Status Never smoker Vital Signs Date / Height Weight BMI Pulse Blood Temperature Respiratory Body Head BMI Time: Rate Pressure Rate Surface Circumference percentile Area 184.60 28.0 lbs 7 mm[Hg] 9:40 kg/m AM eter (2) Chief Complaint And Reason For Visit Unknown Chief Complaint And Reason For Visit Reason For Referral Reason For Referral Unknown Plan Of Care Date Type Action Status Appointment Elaina Marinelli TAYLOR Future Order: Lab Order Pap Smear With HPV Reflex If ASCUS Ordered (WPMPap1) Future Order: Lab Order Pap Smear With HPV Reflex If ASCUS Ordered (WPMPap1) Future Order: Radiology Order Complete OB Ultrasound > 14 Ordered Weeks ([id number]) Date Type Problem Goal Intervention Status Start [...]
--- OUTSIDE RECORDS SUMMARY | 2018-01-08 16:47 | External Medical Summary | Continuity of Care Document ---
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 700 Provider: Health PA, , third 7 Medical Freddie PO Box weeks [place] Kadeem Delacruz, 1522, gestation of Everardo Goel, 120, Medical [facility] [id number], [place], [facility] 120, [place] [id number] Darrian, tel: , [facility], tel: [phone]. [id number] tel:[phone] Rosalina Colmenares Encounter for Oct- Kadeem Referring In Womens suprvsn of normal 2-201 Freddie. 700 Provider: Health PA, , third 7 Medical Freddie PO Box [id number] weeks Center Kadeem Delacruz, 1522, gestation of Everardo Goel, 120, Medical [place]rian [facility] [id number], [place], [facility] 120, [place] [id number] Darrian, tel: , [facility], tel: [phone]. [id number] tel:[phone] Rosalina Colmenares Encounter for Nov-2 Kadeem Referring In Womens suprvsn of normal 8-201 Freddie. 700 Provider: Health PA, , third 7 Medical Freddie PO Box weeks Center Kadeem R, 1522, gestation of Everardo Goel, 120, Medical [place]rian [facility] [id number], [place], [place] 120, [place] [id number] Dar[place], tel: , [place]. [place], tel: [phone]. [phone] tel:[phone] Rosalina Colmenares Encounter for Nov-0 Kadeem Referring In Womens suprvsn of normal 2-201 Freddie. 700 Provider: Health PEDRO, , second 7 Medical Freddie PO Box [id number] weeks Center Kadeem R, 1522, gestation of Everardo Goel, 120, Medical Drarian [facility] [id number], [place], [place] 120, [place] [id number] [place], tel: , [place]. [place], tel: [phone]. [id number] tel:[phone] Rosalina Colmenares Encounter for Oct-0 Kadeem Referring In Womens suprvsn of normal 5-201 Freddie. 700 Provider: Health PEDRO, , second 7 Medical Freddie PO Box weeks Center Kadeem R, 1522, gestation of Ever[place] Goel, 120, Medical [place] [facility] [id number], [place], [place] 120, [place] [id number] [place], tel: , [place]. [place], tel: [phone]. [id number] tel:[phone] Rosalina Colmenares Encounter for Oct-0 Kadeem Referring In Womens Ultrasound suprvsn of normal 5-201 Freddie. 700 Provider: Health PEDRO, , second 7 Medical Freddie PO Box trimesterEncounte Center Kadeem R, 1522, r For Ever[place] Goel, Screening For 120, Medical MATEUSZ, [id number] [facility] [id number], weeks gestation MATEUSZ, [place] 120, [place] of [id number] Darrian, tel: , [place]. [place], tel: [phone]. [id number] tel:[phone] Rosalina Colmenares Encounter for Sep-2 Kadeem Referring In Womens suprvsn of normal 1-201 [place]. 700 Provider: Health PEDRO, , second 7 Medical [facility] Box [id number] weeks Center Kadeem R, 1522, gestation of Everardo Goel, 120, Medical Darrian [facility] [id number], [place], [place] 120, [place] [id number] [place], tel: , [place]. [place], tel: [phone]. [id number] tel:[phone] Rosalina Colmenares Encounter for Aug-2 Kadeem Referring In Womens suprvsn of normal 4-201 [place]. 700 Provider: Health PEDRO, , second 7 Medical [facility] Box [email or web address] weeks Center Kadeem R, 1522, gestation of Ever[place] Goel, 120, Medical [place] [facility] [id number], [place], [place] 120, [place] [id number] [place], tel: , [place]. [place], tel: [phone]. [id number] tel:[phone] Rosalina Colmenares Encntr screen for [place]-2 Kadeem Referring In Womens infections w sexl 6-201 [place]. 700 Provider: Health PEDRO, mode of 7 [facility] Box transmissEncounte [place] Kadeem R, 1522, r for screening Ever[place] Goel, for oth 120, Medical MATEUSZ, infec/parastc [facility] [id number], diseasesEncounter [place], [place] 120, [place] for suprvsn of [id number] Darrian, tel: normal , , [place]. [place], first tel: [phone]. trimesterEncounte [id number] tel: r for [phone] screening of [id number] weeks gestation of Rosalina Colmenares Incomplete Apr-1 Kadeem Referring In Womens spontaneous 8-201 [place]. 700 Provider: Health PEDRO, without 7 Medical [facility] Box complication Center Kadeem R, 1522, Everardo Goel, 120, Medical [place]rian [facility] [id number], [place], [place] 120, [place] [id number] [place], tel: , [place]. [place] tel:[phone]. [phone] tel:[phone] Rosalina Colmenares Incomplete Apr-1 Kadeem Referring In Womens spontaneous 8- [place]. 700 Provider: Wendy VASQUEZ, without 7 Medical [place] PO Box complication Center Kadeem Delacruz, 1522, , Everardo 700 [place], 120, Medical [place]rian CHILD, [place] [id number], [place], [place] 120, [place] [id number] [place], tel: , [place]. [place], tel: [phone]. [id number] tel:[phone] Rosalina Colmenares Threatened Apr-1 Kadeem Referring In Womens 7 [place]. 700 Provider: Wendy VASQUEZ, 7 [facility] PO Box Center Kadeem Delacruz 1522, , [place] [address] [place], 120, Medical Darrian [facility] [id number], [place], [place] 120, [place] [id number] [place], tel: , [place]. [place] tel: [phone]. 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 Provider: Health PEDRO, (routine) w/o abn [address] [place] [address] PO Box findingsPap Smear [facility] Kadeem Delacruz, 1522, Screening, [facility] [address], [facility], 120, [place] [id number], Colmenares, [facility] 120, [place] Dar[place] CHILD, tel:[phone] [place] , [place]. [id number]. 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 700 Provider: Health PEDRO, (routine) w/o abn 5 Medical [place] PO Box findingsPap Smear Center Carlo Cherry, 1522, Screening, Cervix , [place] [address] [place], 120, Medical Darrian [facility] [id number], [place], [place] 120, [place] [id number] [place], tel: , [place]. [place] tel: [phone]. [id number] tel:[phone] Rosalina Colmenares Kadeem Referring In Womens 9-201 [place]. 700 Provider: Health PEDRO, 5 [facility] Anahi Vivas, Dr Everardo 700 [place], 120, Medical Darrian [facility] [id number], [place], [facility] 120, [place] [id number] Dar[place], tel: , . [place], tel: [phone]. [id number] tel:[phone] Rosalina Colmenares Sep-0 Kadeem Referring In Womens 6-201 [place]. 700 Provider: Health PEDRO, 4 [facility] Anahi Vivas, , Everardo 700 [place], 120, Medical Darrian [facility] [id number], [place], [facility] 120, [place] [id number] [place], tel: , . [place], tel: [phone]. [id number] tel:[phone] Rosalina Colmenares Kadeem In Womens 6-201 [place]. 700 Health PA, 0 [facility] Center Anahi, , [facility] [place], 120, Darrian CHILD, [id number], [place], [place] [id number] tel: , . tel: [phone] Family History Family Member Diagnosis Age At Onset Maternal Grandmother Diabetes mellitus Maternal Grandfather Congestive Heart Failure Maternal grandmother Congestive Heart Failure Immunizations Vaccine Date Status Comments Influenza, injectable, completed Source: New Immunization Record quadrivalent, preservative free, 3 yrs or older Influenza, seasonal, injectable, completed Source: New Immunization Record preservative free, 3 yrs or older Tdap completed Source: New Immunization Record Influenza, injectable, completed Source: New Immunization Record quadrivalent, preservative free, 3 yrs or older Payers Payer name Insurance type Covered democrat ID Authorization(s) [facility] [place] [id number] [facility] [place] [id number] [facility] [place] [id number] [facility] [place] [id number] [facility] [place] [id number] Social History Type Description Quantity Date Captured Alcohol Use Details No Caffeine Use Details Unknown Tobacco Use Status Unknown Smoking Status Never smoker Vital Signs Date / Height Weight BMI Pulse Blood Temperature Respiratory Body Head BMI Time: Rate Pressure Rate Surface Circumference percentile Area 179.10 27.2 129/74 2017 lbs 3 mm[Hg] 8:47 kg/m AM eter (2) Chief Complaint And [...] Complete OB Ultrasound > 14 Ordered Weeks (45410) Date Type Problem Goal Intervention Status Start [...]
--- OUTSIDE RECORDS SUMMARY | 2018-01-08 16:47 | External Medical Summary | Continuity of Care Document ---
:1985 Author Organization [facility] Address [address] [place], [place] [address] Phone Support Name Relationship Address Phone Indio Marinelli spouse [address] [facility] [phone] [place] [address] Allergies, Adverse Reactions, Alerts Substance Reaction Severity Status No Known Drug Allergies Unknown Active Medications Medication Instructions Dosage Effective Dates Status Comments (start - stop) VITAMIN B-6 - Active (unknown strength) Probiotic 10 - Active billion cell capsule 28 mg take 1 tablet by Not Available - Active iron-800 mcg oral route every tablet day Zyrtec-D 5 mg-120 take 1 tablet by Not Available - Active mg tablet,extended oral route every 12 release hours Calcium Magnesium - Active 500 mg calcium-250 mg tablet Problems Condition Effective Dates (start - stop) Clinical Status 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 Encntr screen for infections w sexl - mode of transmiss Encounter for screening for oth - infec/parastc diseases Encounter for suprvsn of normal - , first trimester Encounter for screening of - mother 10 weeks gestation of - 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 Threatened 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 700 Provider: Health PEDRO, , second 7 Medical Freddie PO Box [id number] weeks [place] Kadeem Delacruz, 1522, gestation of Everardo Goel, 120, Medical [facility] [id number], [place], [facility] 120, [place] [id number] [place], tel:+ , [place]. [place], tel: [phone]. [phone] tel:[phone] Rosalina Colmenares Nov-0 Kadeem In Womens 1-201 Freddie. 700 Health PEDRO, 7 Medical PO Box Center 1522, Ever[place] Goel, [facility], Darrian CHILD, [id number], [place], [id number] tel: , [place]. tel: [phone] Rosalina Colmenares Encounter for Oct-0 Kadeem Referring In Womens suprvsn of normal 5-201 [place]. 700 Provider: Health PEDRO, , second 7 Medical [place] PO Box [email or web address] weeks Center Kadeem Delacruz, 1522, gestation of Ever[place] Goel, 120, Medical Darrian [facility] [id number], [place], [facility] 120, [place] [id number] Darrian, tel:3162 , [place]. [place], tel: [phone]. [phone] tel:[phone] Rosalina Colmenares Encounter for Oct-0 Kadeem Referring In Womens Ultrasound suprvsn of normal 5-201 [place]. 700 Provider: Health PEDRO, , second 7 Medical [facility] Box trimesterEncounte Garita Kadeem R, 1522, r For [place] Goel, Screening For 120, Medical MATEUSZ, [id number] [facility] [id number], weeks gestation MATEUSZ, Ever[place] 120, [place] of [id number] [place], tel:+ , [place]. [place], tel: [phone]. [id number] tel:[phone] Rosalina Colmenares Encounter for Sep-2 Kadeem Referring In Womens suprvsn of normal 1-201 [place]. 700 Provider: Wendy VASQUEZ, , second 7 Medical [facility] Box weeks Center Kadeem R, 1522, gestation of Ever[place] Goel, 120, Medical MATEUSZ, [facility] [id number], [place], [place] 120, [place] [id number] [place]rian, tel: , [place]. [place], tel: [phone]. [id number] tel:[phone] Rosalina Colmenares Encounter for Aug-2 Kadeem Referring In Womens suprvsn of normal 4-201 [place]. 700 Provider: Wendy VASQUEZ, , second 7 Medical [facility] Box weeks Center Kadeem R, 1522, gestation of Ever[place] Goel, 120, Medical [facility] [id number], [place], [place] 120, [place] [id number] [place]rian, tel: , [place]. [place], tel: [phone]. [id number] tel:[phone] Rosalina Colmenares Encntr screen for [place]-2 Kadeem Referring In Womens infections w sexl 6-201 [place]. 700 Provider: Health PEDRO, mode of 7 [facility] Box [facility]En[facility] services[facility] Garita Kadeem R, 1522, r for screening [place] Goel, for oth 120, Medical MATEUSZ, infec[facility]astc [facility] [id number], diseasesEncounter [place], [place] 120, [place] for suprvsn of [id number] Darrian, tel:[phone] normal , , [place]. [place], first tel: [phone]. trimesterEncounte [id number] tel: r for [phone] screening of weeks gestation of Associates Darrian Incomplete Apr-1 Kadeem Referring In Womens spontaneous 8 [place]. 700 Provider: Health PEDRO, without 7 Medical Freddie PO Box complication Center Kadeem Delacruz, 1522, , [place] [address] [place], 120, Medical Darrian CHILD, [place] [id number], [place], [facility] 120, [place] [id number] [place], tel: , [place]. [place], tel: [phone]. [id number] tel:[phone] Rosalina Colmenares Incomplete Apr-1 Kadeem Referring In Womens spontaneous 8 [place]. 700 Provider: Wendy VASQUEZ, without 7 Medical Freddie PO Box complication Center Kadeem Delacruz 1522, , [address], 120, Medical Darrian CHILD, [place] [id number], [place], [facility] 120, [place] [id number] [place], tel: , [place], tel: [phone]. [id number] tel:[phone] Rosalina Colmenares Threatened Apr-1 Kadeem Referring In Womens 7- [place]. 700 Provider: Wendy VASQUEZ, 7 Medical [place] PO Box Center Kadeem Delacruz 1522, , [address], 120, Medical Darrian [facility] [id number], [place], [facility] 120, [place] [id number] [place]rian, tel: , . [place], tel: [phone]. 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 Provider: Health PEDRO, (routine) w/o abn 6 700 [place] PO Box findingsPap Smear Medical Kadeem Delacruz 1522, Screening, [facility] [address], [facility], 120, [place] [id number], Darrian, [facility] 120, Darrian CHILD, tel:[phone] [place], , [place]. [id number]. 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 700 Provider: Health PEDRO, (routine) w/o abn 5 [facility] findingsPap Smear Center Carlo Cherry, 1522, Screening, Cervix , [place] [address] [place], 120, Medical Darrian [facility] [id number], [place], [facility] 120, [place] [id number] [place]rian, tel:+3162 , [place], tel: [phone]. [id number] tel:[phone] Rosalina Colmenares Nov- Kadeem Referring In Womens 9-201 [place]. 700 Provider: Wendy VASQUEZ, 5 [facility] Box Garita Kadeem Delacruz, 1522, Dr [place] [address] [place], 120, Medical Darrian [facility] [id number], [place], [place] 120, [place] [id number] [place]rian, tel:+2 , [place]. [place], tel: [phone]. [id number] tel:[phone] Rosalina Colmenares Sep- Kadeem Referring In Womens 6-201 [place]. 700 Provider: Wendy VASQUEZ, 4 [facility] Box Garita Kadeem Delacruz, 1522, , Everardo Colón, 120, Medical Darrian [facility] [id number], [place], [facility] 120, [place] [id number] [place], tel:+ , [place]. [place], tel: [phone]. [id number] tel:[phone] Rosalina Colmenares Kadeem In Womens 6-201 [place]. 700 Health PEDRO, 0 [facility] Box Center 1522, , Everardo Colón, [facility], Darrian CHILD [id number], [place], [place] [id number] tel:+2 , [place]. tel:[phone] Family History Family Member Diagnosis Age At Onset Maternal Grandmother Diabetes mellitus Maternal Grandfather Congestive Heart Failure Maternal grandmother Congestive Heart Failure Immunizations Vaccine Date Status Comments Influenza, seasonal, injectable, completed Source: New Immunization Record preservative free, 3 yrs or older Tdap completed Source: New Immunization Record Influenza, injectable, completed Source: New Immunization Record quadrivalent, preservative free, 3 yrs or older Payers Payer name Insurance type Covered republican ID Authorization(s) [facility] BL [id number] [place] [id number] [place] [id number] [place] [id number] Social History Type Description Quantity Date Captured Unknown Vital Signs Date / Height Weight BMI Pulse Blood Temperature Respiratory Body Head BMI Time: Rate Pressure Rate Surface Circumference percentile Area Unknown Chief Complaint And Reason For Visit Unknown Chief Complaint And Reason For Visit Reason For Referral Reason For Referral Unknown Plan Of Care Date Type Action Status Appointment Korey Marinellill BOOKED Future Order: Lab Order Pap Smear With HPV Reflex If ASCUS Ordered ([id number]) Future Order: Lab Order Pap Smear With HPV Reflex If ASCUS Ordered ([id number]) Future Order: Radiology Order Complete OB Ultrasound > 14 Ordered Weeks ([id number]) Date Type Problem Goal Intervention Status Start [...]
--- OUTSIDE RECORDS SUMMARY | 2018-01-08 16:47 | External Medical Summary | Continuity of Care Document ---
:1985 Author Organization [facility] [employer] [facility] Address [address] [place], [place] [id number] Phone Support Name Relationship Address Phone Indio Marinelli spouse [address] [facility] [phone] [place] [address] Allergies, Adverse Reactions, Alerts Substance Reaction Severity Status No Known Drug Allergies Unknown Active Medications Medication Instructions Dosage Effective Dates Status Comments (start - stop) ondansetron HCl 4 take 1 by Oral route Not Available - Active mg tablet every 6 hours VITAMIN B-6 - Active (unknown strength) Probiotic 10 - Active billion cell capsule 28 mg take 1 tablet by Not Available - Active iron-800 mcg tablet oral route every day Zyrtec-D 5 mg-120 take 1 tablet by Not Available - Active mg tablet,extended oral route every 12 release hours Unisom Sleepgels 50 take 1 capsule by 50 MG - Active mg capsule oral route every day at bedtime as needed Calcium Magnesium - Active 500 mg calcium-250 mg tablet Problems Condition Effective Dates (start - stop) Clinical Status 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) w/o abn findings Encounter for suprvsn of normal - , second trimester 14 weeks gestation of - 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 Encntr screen for infections w sexl - mode of transmiss Encounter for screening for oth - infec/parastc diseases Encounter for suprvsn of normal - , first trimester Encounter for screening of - mother 10 weeks gestation of - 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 Provider: Health PEDRO, , second 7 Medical Freddie PO Box [id number] weeks Center Kadeem Delacruz, 1522, gestation of Everardo Goel, 120, Medical [facility] [place], [facility] 120, [place] [id number] Dar[place], tel: , [place]. [place], tel: [phone]. [phone] tel:[phone] Rosalina Colmenares Encntr screen for May- Kadeem Referring In Womens infections w sexl 6-[address] [place]. 700 Provider: Wendy VASQUEZ, mode of 7 Medical [place] PO Box transmissEncounter Center Kadeem Delacruz, 1522, for screening for Everardo Goel, [facility] infec/parastc 120, Medical [facility] [id number], for suprvsn of [place], [place] 120, [place] normal , [id number] Darrian, tel: [facility] , [place]. [place], trimesterEncounter tel: [phone]. for [id number] tel: screening of [id number] weeks gestation of Rosalina Colmenares May-2 Kadeem In Womens [address] Wendy VASQUEZ, 7 Medical PO Box Center [address] [place], [facility], [place], [id number], [place], [id number] tel: , [place]. tel: [phone] Rosalina Colmenares Incomplete Feb- Kadeem Referring In Womens spontaneous 8-[address] [place] 700 Provider: Wendy VASQUEZ, without 7 Medical [place] PO Box complication Center Kadeem Delacruz, 1522, Everardo Goel, 120, Medical Darrian CHILD, [place] [id number], [place], [place] 120, [place] [id number] Darrian, tel: , [place]. [place], tel: [phone]. [id number] tel:[phone] Rosalina Colmenares Incomplete Apr- Kadeem Referring In Womens spontaneous 8-[address] [place] 700 Provider: Health PEDRO, without 7 Medical [place] PO Box complication Center Kadeem Delacruz 1522, , [place] [address] [place], 120, Medical [place]rian CHILD, [place] [id number], [place], [facility] 120, [place] [id number] Darrian, tel: , [place]. [place], tel: [phone]. [id number] tel:[phone] Rosalina Colmenares Threatened Apr-1 Kadeem Referring In Womens 7-[address] [place] 700 Provider: Health PEDRO, 7 [facility] PO Box Center [address], [place] [address] [place], 120, Medical [facility] [id number], [place], [facility] 120, [place] [id number] [place], tel: , [place]. [place], tel: [phone]. [phone] tel:[phone] Rosalina Colmenares Encntr for research investigator exam Nov-0 Matos Referring In Womens (general) (routine) 2- [facility]. Provider: Health PEDRO, w/o abn findingsPap [address] [place] [address] PO Box Smear Screening, [facility] Kadeem Delacruz, 1522, Cervix Center [address], [facility], 120, [place] [id number], Darrian, [facility] 120, [place] Darrian CHILD, tel: [phone] [place] , [place]. [id number]. 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 700 Provider: Health PEDRO, w/o abn findingsPap 5 Medical [place] PO Box Smear Screening, Center Carlo Cherry, 1522, Cervix , [place] [address] [place], 120, Medical [facility]rian [facility] [id number], [place], [facility] 120, [place] [id number] [place], tel: , [place]. [place], tel: [phone]. [phone] tel:[phone] Rosalina Colmenares Kadeem Referring In Womens 9-[address] [place] 700 Provider: Health [place], 5 [facility] Kadeem Delacruz, 1522, , [facility] [place]na [place], 120, Medical [facility] [facility] [id number], [place], [facility] 120, [place] [id number] Dar[place], tel: , [place]. [place], tel: [phone]. [id number] tel:[phone] Rosalina Colmenares Sep- Kadeem Referring In Womens 6-[address] 700 Provider: Health PA, 4 [facility] Kadeem Delacruz, 1522, Dr [facility] Amna Colón, 120, Medical Darrian [facility] [id number], [place], [facility] 120, [place] [id number] Darrian, tel: , [place]. [place], tel: [phone]. [id number] tel:[phone] Rosalina Colmenares Kadeem In Womens 6-[address] Health PA, 0 [facility] 1522, , [facility] [place], [facility], SCDarrian, [id number], [place], [place] [id number] tel: , . tel: [phone] Family History Family Member Diagnosis Age At [...] name Insurance type Covered republican ID Authorization(s) [facility] [place] [id number] [facility] [place] [id number] [facility] [place] [id number] [facility] [place] [id number] Social History Type Description Quantity Date Captured Alcohol Use Details No Caffeine Use Details No Tobacco Use Status Never smoked tobacco Smoking Status Never smoker Vital Signs Date / Height Weight BMI Pulse Blood Temperature Respiratory Body Head BMI Time: Rate Pressure Rate Surface Circumference percentile Area 152.10 23.1 136/81 -2017 lbs 2 mm[Hg] 10:08 kg/m AM eter (2) Chief Complaint And Reason For Visit Unknown Chief Complaint And Reason For Visit Reason For Referral Reason For Referral Unknown Plan Of Care Date Type Action Status Appointment Elaina Marinelli BOOKED Future Order: Lab Order Pap Smear With HPV Reflex If ASCUS Ordered (WPMPap1) Future Order: Lab Order Pap Smear With HPV Reflex If ASCUS Ordered (WPMPap1) Date Type Problem Goal Intervention Status Start [...] childbirth classes / hospital facilities hospital registration new ob handbook [facility] docs HIV and other routine tests risk factors identified by history anticipated course of care nutrition and weight gain counseling, special diet toxoplasmosis precautions (cats / raw meat) sexual activity exercise indications for ultrasound influenza vaccine genetic testing Zika virus assessment & precautions
--- OUTSIDE RECORDS SUMMARY | 2018-01-08 16:47 | External Medical Summary | Continuity of Care Document ---
:1985 Author Organization [facility] [employer] [facility] Address [address] [place], [place] [address] Phone Support Name Relationship Address Phone Indio Marinelli spouse [address] 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 700 Provider: Wendy VASQUEZ, , second 7 Medical Freddie PO Box [id number] weeks Center Kadeem R, 1522, gestation of Everardo Goel, 120, Medical [facility] [place] [id number], MATEUSZ, [place] 120, [place] [id number] [place], tel: , [place]. [place], tel: [phone]. [phone] tel:[phone] Rosalina Colmenares Encounter for Oct-0 Kadeem Referring In Womens Ultrasound suprvsn of normal 5-201 [address]. 700 Provider: Wendy VASQUEZ, , second 7 Medical Freddie PO Box trimesterEncounte Center Kadeem R, 1522, r For Everardo Goel, Screening For 120, Medical MATEUSZ, [id number] [facility] [id number], weeks gestation MATEUSZ [facility] 120, [place] of [id number] Darrian, tel: , . [place], tel: [phone]. [id number] tel:[phone] Rosalina Colmenares Encounter for Sep-2 Kadeem Referring In Womens suprvsn of normal 1-201 [address]. 700 Provider: Wendy VASQUEZ, , second 7 Medical Freddie PO Box [id number] weeks Center Kadeem R, 1522, gestation of Everardo Goel, 120, Medical MATEUSZ [facility] [id number], [place], [place] 120, [place] [id number] Darrian, tel: , [place]. [place] tel: [phone]. [phone] tel:[phone] Rosalina Colmenares Encounter for Aug-2 Kadeem Referring In Womens suprvsn of normal 4-201 [place]. 700 Provider: Health [place], , second 7 Medical Freddie PO Box [email or web address] weeks Center Kadeem R, 1522, gestation of Everardo Goel, 120, Medical Darrian [facility] [place] [id number], [place], [place] 120, [place] [id number] Dar[place], tel: , [place]. [place], tel: [phone]. [id number] tel:[phone] Rosalina Colmenares Encntr screen for [place]-2 Kadeem Referring In Womens infections w sexl 6-201 [place]. 700 Provider: Health PEDRO, mode of 7 Medical Freddie PO Box transmissEncounte Center Kadeem R, 1522, r for screening Ever[place] Goel, for oth 120, Medical [place], infec/parastc [place] [id number], diseasesEncounter [place], [place] 120, [place] for suprvsn of [id number] Darrian, tel: normal , , [place]. [place], first tel: [phone]. trimesterEncounte [id number] tel: r for [phone] screening of [id number] weeks gestation of Rosalina Colmenares Incomplete Apr-1 Kadeem Referring In Womens spontaneous 8-201 [place]. 700 Provider: Wendy VASQUEZ, without 7 Medical Freddie PO Box complication Center Kadeem R, 1522, Everardo Goel, 120, Medical Darrian [facility] [place] [id number], [place], [place] 120, [place] [id number] Darrian, tel: , [place]. [place] tel: [phone]. [phone] tel:[phone] Rosalina Colmenares Incomplete Apr-1 Kadeem Referring In Womens spontaneous 8-201 [place]. 700 Provider: Health PEDRO, without 7 Medical Freddie PO Box complication Center Kadeem R, 1522, Everardo Goel, 120, Medical Darrian CHILD, [place] [id number], [place], [place] 120, [place] [id number] Darrian, tel: , [place]. [place], tel: [phone]. [id number] tel:[phone] Associates [place] Wayne Kadeem Referring In Womens [place]. 700 Provider: Wendy VASQUEZ, 7 [facility] PO Box Center Kadeem R, 1522, , [place] 700 [place], 120, Medical [place] CHILD, [place] [id number], [place], [place] 120, [place] [id number] Darrian, tel: , [place]. [place], tel: [phone]. [id number] tel:[phone] Associates [place] Encntr for lead pourer Nov-0 Matos Referring In Womens exam (general) 2 [facility]. Provider: Wendy VASQUEZ, (routine) w/o abn [address] [place] [address] Box findingsPap Smear [facility] Kadeem R, 1522, Screening, Cervix Center [address] [place], [facility], 120, [place] [id number], [place], [facility] [place] 120, [place] Darrian CHILD, tel: [phone] [place], , [place]. [id number]. tel: tel: [phone] Associates [place] Encntr for lead pourer Aug- Kadeem Referring In Womens exam (general) [place]. 700 Provider: Wendy VASQUEZ, (routine) w/o abn 5 [facility] PO Box findingsPap Smear Center Matos J, 1522, Screening, Cervix , [place] 700 [place], 120, Medical Darrian [facility] [place] [id number], [place], [place] 120, [place] [id number] [place], tel: , [place]. [place], tel: [phone]. [id number] tel:[phone] Rosalina Colmenares Kadeem Referring In Womens [place]. 700 Provider: Wendy VASQUEZ, 5 [facility] Box [place] Kadeem R, 1522, , [place] 700 [place], 120, Medical [place]rian CHILD, [place] [id number], [place], [place] 120, [place] [id number] Darrian, tel: , [place]. [place], tel: [phone]. [id number] tel:[phone] Rosalina Colmenares Kadeem Referring In Womens 6-201 [place]. 700 Provider: Health [place], 4 [facility] PO Box [place] [address] [place], [facility], [facility] [place] [id number], [place], [place] [address], [id number] Darrian, tel: , . [place], tel: [phone]. [phone] tel:[phone] Rosalina Colmenares Kadeem In Womens 6-201 [place]. 700 Health PA, 0 [facility] PO Box Center [address] [place], 120, Darrian CHILD [id number], [place], [id number] tel: , . tel: [phone] Family History Family Member Diagnosis Age At [...] older Payers Payer name Insurance type Covered libertarian ID Authorization(s) [facility] [id number] [facility] [id number] [facility] [id number] [facility] [id number] Social History Type Description Quantity Date Captured Alcohol Use Details No Caffeine Use Details Unknown Tobacco Use Status Unknown Smoking Status Never smoker Vital Signs Date / Height Weight BMI Pulse Blood Temperature Respiratory Body Head BMI Time: Rate Pressure Rate Surface Circumference percentile Area 159.50 24.2 132/79 -2016 lbs 5 mm[Hg] 9:28 kg/m AM eter (2) Chief Complaint And [...] Complete OB Ultrasound > 14 Ordered Weeks (30427) Date Type Problem Goal Intervention Status Start [...]
--- OUTSIDE RECORDS SUMMARY | 2018-01-08 16:47 | External Medical Summary | Continuity of Care Document ---
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 700 Provider: Health [place], , second 7 Medical Freddie PO Box [id number] weeks [place] Kadeem Delacruz, 1522, gestation of Everardo Goel, 120, Medical Darrian [facility] [id number], [place], [facility] 120, [place] [id number] Darrian, tel:+ , [place]. [place], tel: [phone]. [id number] tel:[phone] Rosalina Colmenares Oct-2 Kadeem In Womens 9-201 [address]. 700 Health PEDRO, 7 Medical PO Box Center 1522, Ever[place] Goel, [facility], Darrian CHILD, [id number], [place], [id number] tel: , [place]. tel: [phone] Rosalina Colmenares Encounter for Oct-0 Kadeem Referring In Womens suprvsn of normal 5-201 [address]. 700 Provider: Health PEDRO, , second 7 Medical [place] PO Box [id number] weeks Center Kadeem Delacruz, 1522, gestation of Everardo Goel, 120, Medical Darrian [facility] [id number], [place], [facility] 120, [place] [id number] Darrian, tel:2 , [place]. [place], tel: [phone]. [id number] tel:[phone] Rosalina Colmenares Encounter for Oct-0 Kadeem Referring In Womens Ultrasound suprvsn of normal 5-201 [place]. 700 Provider: Health PEDRO, , second 7 Medical [facility] Box trimesterEncounte [place] Kadeem R, 1522, r For Ever[place] Goel, Screening For 120, Medical MATEUSZ, [id number] [facility] [id number], weeks gestation MATEUSZ, [place] 120, [place] of [id number] [place], tel:+ , [place]. [place], tel: [phone]. [id number] tel:[phone] Rosalina Colmenares Encounter for Sep-2 Kadeem Referring In Womens suprvsn of normal 1-201 [place]. 700 Provider: Wendy VASQUEZ, , second 7 Medical [facility] Box [id number] weeks Center Kadeem R, 1522, gestation of Ever[place] Goel, 120, Medical MATEUSZ, [facility] [id number], [place], [place] 120, [place] [id number] [place]rian, tel: , [place]. [place], tel: [phone]. [id number] tel:[phone] Rsoalina Colmenares Encounter for Aug-2 Kadeem Referring In Womens suprvsn of normal 4-201 [place]. 700 Provider: Wendy VASQUEZ, , second 7 Medical [facility] Box [id number] weeks Center Kadeem R, 1522, gestation of Ever[place] Goel, 120, Medical Darrian [facility] [id number], [place], [place] 120, [place] [id number] Darrian, tel: , [place]. [place], tel: [phone]. [id number] tel:[phone] Rosalina Colmenares Encntr screen for [place]-2 Kadeem Referring In Womens infections w sexl 6-201 [place]. 700 Provider: Health PEDRO, mode of 7 [facility] Box [facility]Encchildren[facility] [place] Kadeem R, 1522, r for screening [place] Goel, for oth 120, Medical MATEUSZ, infec/parastc [facility] [id number], diseasesEncounter CT, [place] 120, [place] for suprvsn of [id number] Darrian, tel:[phone] normal , , [place]. [place], first tel: [phone]. trimesterEncounte [id number] tel: r for [phone] screening of weeks gestation of Associates [place] Incomplete Apr-1 Kadeem Referring In Womens spontaneous 8 [place]. 700 Provider: Health PEDRO, without 7 Medical Freddie PO Box complication Center Kadeem Delacruz, 1522, , [place] [address] [place], 120, Medical [place]rian CHILD, [place] [id number], [place], [facility] 120, [place] [id number] Darrian, tel: , [place]. [place], tel: [phone]. [id number] tel:[phone] Rosalina Colmenares Incomplete Apr-1 Kadeem Referring In Womens spontaneous 8 [place]. 700 Provider: Wendy VASQUEZ, without 7 Medical Freddie PO Box complication Center Kadeem Delacruz 1522, , [address], 120, Medical [place] CHILD, [place] [id number], [place], [facility] 120, [place] [id number] Darrian, tel: , [place]. [place], tel: [phone]. [id number] tel:[phone] Rosalina Colmenares Threatened Apr-1 Kadeem Referring In Womens 7- [place]. 700 Provider: Wendy VASQUEZ, 7 Medical [place] PO Box Center Kadeem Delacruz 1522, , [address], 120, Medical Darrian [facility] [id number], [place], [facility] 120, [place] [id number] Darrian, tel: , . [place], tel: [phone]. 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 Provider: Health PEDRO, (routine) w/o abn 6 700 [place] PO Box findingsPap Smear Medical Kadeem Delacruz 1522, Screening, Cervix Center [address], [facility], 120, [place] [id number], Darrian, [facility] 120, Darrian CHILD, tel:[phone] CT, , [place]. [id number]. 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 700 Provider: Health PEDRO, (routine) w/o abn 5 [facility] findingsPap Smear Center Carlo Cherry, 1522, Screening, Cervix , [place] [address] [place], 120, Medical Darrian [facility] [id number], [place], [facility] 120, [place] [id number] Darrian, tel:+3162 , [place]. [place], tel: [phone]. [id number] tel:[phone] Rosalina Colmenares Nov- Kadeem Referring In Womens 9-201 [place]. 700 Provider: Wendy VASQUEZ, 5 [facility] Box [place] Kadeem Delacruz, 1522, Dr [place] [address] [place], 120, Medical Darrian [facility] [id number], [place], [place] 120, [place] [id number] Darrian, tel:+2 , [place]. [place], tel: [phone]. [id number] tel:[phone] Rosalina Colmenares Sep- Kadeem Referring In Womens 6-201 [place]. 700 Provider: Wendy VASQUEZ, 4 [facility] Box [place] Kadeem Delacruz, 1522, , Everardo Colón, 120, Medical Darrian [facility] [id number], [place], [facility] 120, [place] [id number] Darrian, tel:+ , [place]. [place], tel: [phone]. [id number] tel:[phone] Rosalina Colmenares Kadeem In Womens 6-201 [place]. 700 Health PEDRO, 0 [facility] Box Center 1522, , Everardo Colón, [facility], Darrian CHILD [id number], [place], [place] [id number] tel:+2 , [place]. tel:[phone] Family History Family Member Diagnosis Age At [...] name Insurance type Covered libertarian ID Authorization(s) [facility] BL [id number] [place] [id number] [employer] [place] [id number] [employer] [place] BL [id number] Social History Type Description Quantity Date Captured [...] Complete OB Ultrasound > 14 Ordered Weeks (08708) Date Type Problem Goal Intervention Status Start [...]
--- OUTSIDE RECORDS SUMMARY | 2018-01-08 16:47 | External Medical Summary | Referral Summary ---
:1985 Author Organization [facility] Address [address] [place] [address] Care Team Providers Name Role Phone No PCP, [facility] Primary Care Physician Encounter VC Date(s): 11/09/15 - 11/09/15 [facility] [address] [place] [address] - [place] Discharge Diagnosis: Acute streptococcal pharyngitis Discharge Diagnosis: Sore throat Discharge Disposition: 01-Home or Self Care Attending Physician: Kerrie Blas PA-C Attending Physician: Provider, Immediate Care Attending Physician: Varinder Lowe APRN Admitting Physician: Provider, Immediate Care Vital Signs Most recent to oldest [Reference Range]: 1 Temperature Oral [35.8-37.3 degC] 36.5 degC (11/09/15 11:41 AM) Peripheral Pulse Rate [60-100 bpm] 71 bpm (11/09/15 11:41 AM) Respiratory Rate [14-20 br/min] 16 br/min (11/09/15 11:41 AM) Blood Pressure [90-140/60-90 mmHg] 123/75 mmHg (11/09/15 11:41 AM) SpO2 98 % (11/09/15 11:41 AM) Problem List No data available for this section Allergies, Adverse Reactions, Alerts No Known Medication Allergies Medications amoxicillin 875 mg oral tablet 875 mg 1 tabs, Oral, BID, X 10 days, # 20 tabs, 0 Refill(s), Pharmacy: [facility] #[id number], 1 tabs Oral BID,x10 days Start Date: 11/09/15 Stop Date: 11/19/15 Status: OrderedAntifungal Antifungal, 0 Refill(s) Start Date: 11/09/15 Status: Orderedclotrimazole 1% topical cream 1 ibrahima, Topical, BID, X 14 days, # 100 g, 0 Refill(s), Pharmacy: [facility] #[id number] Start Date: 11/09/15 Stop Date: 11/23/15 Status: OrderedHeather 0.35 mg oral tablet 0.35 mg 1 tabs, Oral, Daily, 0 Refill(s) Start Date: 10/28/15 Status: Ordered Results No data available for this section Immunizations No data available for this section Procedures No data available for this section Social History Social History Type Response Smoking Status Never smoker Assessment and Plan Extracted from: Title: Office Visit Note Author: Varinder Lowe APRN Date: 11/09/15 Assessment/Plan Sore throat Discussed use of OTC pain medications, saline rinse, drinking hot liquids all to ease the pain and tenderness of the throat. Encouraged not sharing eating utensils, food, and drink with others. Advised to have a follow up visit in two weeks to confirm eradication of illness. Instructed patient if symptoms worsen or new symptoms arise to seek medical attention here or at the ER. Instructed patient if symptoms do not improve follow up with PCP in 2-3 days. Patient voiced un derstanding and agreed with treatment plan. Patient dismissed in stable condition. Orders: amoxicillin, 875 mg 1 tabs, Oral, BID, X 10 days, # 20 tabs, 0 Refill (s), [facility] #[id number], 1 tabs Oral BID,x10 days clotrimazole topical, 1 ibrahima, Topical, BID, X 14 days, # 100 g, 0 Refill(s), [facility] #[id number]
--- OUTSIDE RECORDS SUMMARY | 2018-01-08 16:47 | External Medical Summary | Referral Summary ---
:1985 Author Organization [facility] Address [address] [place] [address] Encounter VC Date(s): 10/28/15 - 10/28/15 [facility] [address] [place] [address] - [place] Discharge Diagnosis: Streptococcal sore throat Discharge Disposition: 01-Home or Self Care Attending Physician: Tracy Pineda MD Attending Physician: Provider, Immediate Care Admitting Physician: Provider, Immediate Care Vital Signs Most recent to oldest [Reference Range]: 1 Temperature Oral [35.8-37.3 degC] 36.8 degC (10/28/15 11:10 AM) Peripheral Pulse Rate [60-100 bpm] 95 bpm (10/28/15 11:10 AM) Blood Pressure [90-140/60-90 mmHg] 120/78 mmHg (10/28/15 11:10 AM) SpO2 100 % (10/28/15 11:10 AM) Problem List No data available for this section Allergies, Adverse Reactions, Alerts No Known Medication Allergies Medications Ceftin 500 mg oral tablet 500 mg 1 tabs, Oral, BID, X 10 days, # 20 tabs, 0 Refill(s), Pharmacy: [facility] #[id number], 1 tabs Oral BID,x10 days Start Date: 10/28/15 Stop Date: 11/07/15 Status: OrderedHeather 0.35 mg oral tablet 0.35 mg 1 tabs, Oral, Daily, 0 Refill(s) Start Date: 10/28/15 Status: Ordered Results No data available for this section Immunizations No data available for this section Procedures No data available for this section Social History Social History Type Response Smoking Status Never smoker Assessment and Plan No data available for this section
--- OUTSIDE RECORDS SUMMARY | 2018-01-08 16:47 | External Medical Summary | Referral Summary ---
:1985 Author Organization [facility] Address [address] [place] [address] Care Team Providers Name Role Phone No PCP, [facility] Primary Care Physician Encounter [facility] [id number] Date(s): 11/11/15 - 11/11/15 [facility] [address] [place] [address] - [place] Discharge Diagnosis: Acute pharyngitis Discharge Diagnosis: Candidiasis Discharge Disposition: 01-Home or Self Care Attending Physician: Farhana Jordan Attending Physician: Provider, Immediate Care Admitting Physician: Provider, Immediate Care Vital Signs Most recent to oldest [Reference Range]: 1 Temperature Oral [35.8-37.3 degC] 37.0 degC (11/11/15 11:24 AM) Peripheral Pulse Rate [60-100 bpm] 76 bpm (11/11/15 11:24 AM) Blood Pressure [90-140/60-90 mmHg] 115/72 mmHg (11/11/15 11:24 AM) SpO2 98 % (11/11/15 11:24 AM) Problem List No data available for this section Allergies, Adverse Reactions, Alerts No Known Medication Allergies Medications Antifungal Antifungal, 0 Refill(s) Start Date: 11/09/15 Status: Orderedclotrimazole 1% topical cream 1 ibrahima, Topical, BID, X 14 days, # 100 g, 0 Refill(s), Pharmacy: [facility] #[id number] Start Date: 11/09/15 Stop Date: 11/23/15 Status: [...] Extracted from: Title: Office Visit Note Author: Farhana Jordan Date: 11/11/15 Assessment/Plan 1.Acute pharyngitis Throat material sent forculture. Bicillin L.A. 1.2million units IM given. salt water gargles, lozenges, Chloraseptic spray, hot/coldfood or drinks. Ordered: Office Visit Level 3 Est 01069 2.Candidiasis Diflucan today and then take next dose Friday as already prescribed. Keep area dry continue topical cream. Change breast pads frequently Instructed patient on medication, use, comm on side effects, and administration. Discussed proper OTC medication, including Tylenol or ibuprofen, for symptomatic relief. Instructed patient if symptoms worsen or new symptoms arise to seek medical attention here or at the ER. If no improvement of symptoms follow up with PCP in 2-3 days. Patient voiced understanding and agreed with treatment plan. Patient dismissed in stable condition. Ordered: Office Visit Level 3 Est 69966
--- OUTSIDE RECORDS SUMMARY | 2018-01-08 16:47 | External Medical Summary | Continuity of Care Document ---
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 Encounter for suprvsn of normal - , second trimester 24 weeks gestation of - 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 Encntr screen for infections w sexl - mode of transmiss Encounter for screening for oth - infec/parastc diseases Encounter for suprvsn of normal - , first trimester Encounter for screening of - mother 10 weeks gestation of - 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 Threatened 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 [place], tel: [phone]. [id number] tel:[phone] Rosalina Colmenares Encounter for Oct-0 Kadeem Referring In Womens suprvsn of normal 5-201 [place]. 700 Provider: Health PEDRO, , second 7 Medical Freddie [address] [email or web address] weeks Center Kadeem R, 1522, gestation of Everardo Goel, 120, Medical Darrian CHILD [place] [id number], [place], Everardo 120, [place] [id number] Darrian, tel: , . [place], tel: [phone]. [id number] tel:[phone] Rosalina Colmenares Encounter for Oct-0 Kadeem Referring In Womens Ultrasound suprvsn of normal 5-201 [place]. 700 Provider: Health PEDRO, , second 7 Medical Freddie PO Box trimesterEncounte Center Kadeem R, 1522, r For Everardo Goel, Screening For 120, Medical MATEUSZ, [id number] Darrian [place] [id number], weeks gestation [place], Everardo 120, [place] of [id number] Darrian, tel: , [place]. [place] tel: [phone]. [id number] tel:[phone] Rosalina Colmenares Encounter for Sep-2 Kadeem Referring In Womens suprvsn of normal 1-201 [place]. 700 Provider: Wendy VASQUEZ, , second 7 Medical [facility] Box [email or web address] weeks Center Kadeem Delacruz, 1522, gestation of Everardo Goel, 120, [facility] [id number], [place], [facility] 120, [place] [id number] Darrian, tel: , [place]. [place], tel: [phone]. [id number] tel:[phone] Rosalina Colmenares Encounter for Aug-2 Kadeem Referring In Womens suprvsn of normal 4-201 [place]. 700 Provider: Wendy VASQUEZ, , second 7 Medical [facility] Box [email or web address] weeks Center Kadeem Delacruz, 1522, gestation of Everardo Goel, 120, Medical [facility] [id number], [place], [facility] 120, [place] [id number] Darrian, tel: , [place]. [place] tel: [phone]. [id number] tel:[phone] Rosalina Colmenares Encntr screen for [place]-2 Kadeem Referring In Womens infections w sexl 6-201 [place]. 700 Provider: Wendy VASQUEZ, mode of 7 Medical [facility] Box transmissEncounte [place] Kadeem Delacruz 1522, r for screening Everardo Goel, for oth 120, Medical MATEUSZ, infec[facility]c [facility] [id number], diseasesEncounter [place], [facility] 120, [place] for suprvsn of [id number] Darrian, tel: normal , , [place]. [place], first tel: [phone]. trimesterEncounte [id number] tel: r for [phone] screening of weeks gestation of Rosalina Colmenares Incomplete Apr-1 Kadeem Referring In Womens spontaneous 8-201 [place]. 700 Provider: Wendy VASQUEZ, without 7 Medical [facility] Box complication Center Kadeem Delacruz, 1522, Everardo Goelta, 120, Medical Darrian CHILD, [place] [id number], [place], [facility] 120, [place] [id number] Darrian, tel: , [place]. [place], tel: [phone]. [id number] tel:[phone] Rosalina Colmenares Incomplete Apr-1 Kadeem Referring In Womens spontaneous 8 [place]. 700 Provider: Health PEDRO, without 7 Medical [place] PO Box complication Center Kadeem Delacruz, Ruth2, , [facility] Amna Colón, 120, Medical MATEUSZ, Darrian, [place] [id number], [place], [facility] 120, [place] [id number] Darrian, tel: , [place]. [place], tel: [phone]. [id number] tel:[phone] Rosalina Colmenares Threatened Apr-1 Kadeem Referring In Womens 7 [place]. 700 Provider: Health PEDRO, 7 [facility] [address] Box [place] Kadeem Delacruz 1522, , [facility] Amna Colón, 120, Medical [facility] [id number], [place], [facility] 120, [place] [id number] Darrian, tel: , [place]. [place] tel: [phone]. 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 Provider: Health PEDRO, (routine) w/o abn 6 700 [place] PO Box findingsPap Smear [facility] Kadeem Delacruz, 1522, Screening, [facility] [address], [facility], 120, [place] [id number], Colmenares, [facility] 120, [place] Darrina CHILD, tel: [phone] [place] , [place]. [id number]. 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 700 Provider: Health PEDRO, (routine) w/o abn 5 Medical [place] PO Box findingsPap Smear Center Carlo Cherry, 1522, Screening, Cervix , [place] [address] [place], 120, Medical [facility] [id number], [place], [facility] 120, [place] [id number] Darrian, tel: , [place]. [place], tel: [phone]. [id number] tel:[phone] Rosalina Colmenares Nov- Kadeem Referring In Womens 9-201 [place]. 700 Provider: Health PA, 5 [facility] Kadeem Delacruz, 1522, , [place] [address] [place], 120, Medical [facility] [id number], [place], [facility] 120, [place] [id number] Dar[place], tel: , [place]. [place], tel: [phone]. [id number] tel:[phone] Rosalina Colmenares Sep-0 Kadeem Referring In Womens 6- [place]. 700 Provider: Health PA, 4 [facility] Kadeem Delacruz, 1522, , [place] [address] [place], 120, Medical [facility] [id number], [place], [facility] 120, [place] [id number] Dar[place], tel: , [place]. [place], tel: [phone]. [id number] tel:[phone] Rosalina Colmenares Aug- Kadeem In Womens 6-201 [place]. 700 Health PA, 0 [facility] [id number], , [facility] [place], [facility], IDDarrian, [id number], [place], [place] [id number] tel: , . tel: [phone] Family History Family Member Diagnosis Age At [...] name Insurance type Covered libertarian ID Authorization(s) [facility] [place] [id number] [facility] [id number] [facility] [id number] [facility] [id number] Social History Type Description Quantity Date Captured Alcohol Use Details No Caffeine Use Details Unknown Tobacco Use Status Unknown Smoking Status Never smoker Vital Signs Date / Height Weight BMI Pulse Blood Temperature Respiratory Body Head BMI Time: Rate Pressure Rate Surface Circumference percentile Area 169.50 25.7 120/76 -2017 lbs 7 mm[Hg] 9:30 kg/m AM eter (2) Chief Complaint And [...] Complete OB Ultrasound > 14 Ordered Weeks (00659) Date Type Problem Goal Intervention Status Start [...]
[2018-01-08] MEDS ORDERED: METHYLERGONOVINE 0.2 MG/ML INJECTION IM PRN (16:48)
[2018-01-08] MEDS ORDERED: ACETAMINOPHEN 500 MG TABLET PO PRN ×2 (16:48→21:51)
[2018-01-08] MEDS ORDERED: CALCIUM CARBONATE Chewable 500mg TABLET PO PRN ×2 (16:48→21:51)
[2018-01-08] MEDS ORDERED: CARBOPROST 250 MCG/ML INJECTION IM PRN (16:48)
[2018-01-08] MEDS ORDERED: MAG-AL + SIM ORAL LIQUID 30ml PO PRN ×2 (16:48→21:51)
[2018-01-08] MEDS ORDERED: LIDOCAINE 1% (10mg/ml) 2mL INJ PF SDV ID PRN (16:48)
--- OUTSIDE RECORDS SUMMARY | 2018-01-08 16:48 | External Medical Summary | Continuity of Care Document ---
:1985 Author Organization [facility] [employer] [facility] Address [address] [place], [place] [id number] Phone Support Name Relationship Address Phone Indio Marinelli spouse [address] [facility] [phone] [place] [address] Allergies, Adverse Reactions, Alerts Substance Reaction Severity Status No Known Drug Allergies Unknown Active Medications Medication Instructions Dosage Effective Dates Status Comments (start - stop) amoxicillin 500 mg take 1 capsule by 500 MG - Active capsule oral route every 8 hours ondansetron HCl 4 take 1 by Oral [...] (start - stop) Clinical Status 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 Encntr screen for infections w sexl - mode of transmiss Encounter for screening for oth - infec/parastc diseases Encounter for suprvsn of normal - , first trimester Encounter for screening of - mother 10 weeks gestation of - 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 Threatened 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) w/o abn findings Pap Smear Screening, Cervix - Pap Smear Screening, Cervix - Active Procedures Procedure Date Initial OB Visit No Charge - UNIT RECEPTIONIST OB Prepayment Agreement OB Panel With An HIV Urine Culture Venpnctr fngr/heel/ear stick routne Infct antign, chlamydia trac, ampl Neisseria Gonorrhoeae, Amplification Cult, bactr, ident isolate, urine Suscept study, microdilut/agar BRITTANY Cult bactr, aerobic, addl methods Results Test Name Date and Time Measure Units Reference Range Abnormal Flag Comments Panel Description: OBSTETRIC PANEL WHITE BLOOD CELL 7.6 Thousand/uL 3.8-10.8 N COUNT 13:50:00 RED BLOOD CELL 4.86 Million/uL 3.80-5.10 N COUNT 13:50:00 HEMOGLOBIN 14.8 g/dL 11.7-15.5 N 13:50:00 HEMATOCRIT 42.7 % 35.0-45.0 N 13:50:00 MCV 87.9 fL 80.0-100.0 N 13:50:00 MCH 30.5 pg 27.0-33.0 N 13:50:00 MCHC 34.7 g/dL 32.0-36.0 N 13:50:00 RDW 12.8 % 11.0-15.0 N 13:50:00 PLATELET COUNT 229 Thousand/uL 140-400 N 13:50:00 MPV 10.6 fL 7.5-12.5 N 13:50:00 ABSOLUTE 5016 cells/uL 6291-2270 N NEUTROPHILS 13:50:00 ABSOLUTE 1786 cells/uL 850-3900 N LYMPHOCYTES 13:50:00 ABSOLUTE 578 cells/uL 200-950 N MONOCYTES 13:50:00 ABSOLUTE 190 cells/uL 15-500 N EOSINOPHILS 13:50:00 ABSOLUTE 30 cells/uL 0-200 N BASOPHILS 13:50:00 NEUTROPHILS 66 % N 13:50:00 LYMPHOCYTES 23.5 % N 13:50:00 MONOCYTES 7.6 % N 13:50:00 EOSINOPHILS 2.5 % N 13:50:00 BASOPHILS 0.4 % N 13:50:00 ANTIBODY SCREEN, NO ANTIBODIES N RBC W/REFL ID, 13:50:00 DETECTED Reference range TITER AND AG No antibodies detected This assay is a screening test for the detection of red blood cell antibodies. The test is not to be used for pretransfusion screening or for the medical management of an alloimmunized . ABO GROUP A 13:50:00 RH TYPE RH(D) 13:50:00 POSITIVE RPR (DX) W/REFL NON-REACTIVE NON-REACTIV N TITER AND 13:50:00 E CONFIRMATORY TESTING HEPATITIS B NON-REACTIVE NON-REACTIV N SURFACE ANTIGEN 13:50:00 E RUBELLA ANTIBODY 2.49 index N Index (IGG) 13:50:00 Interpretation ----- <0.90 Not consistent with Immunity 0.90-0.99 Equivocal > or=1.00 Consistent with Immunity The presence of rubella IgG antibody suggests immunization or past or current infection withrubella virus.Test performed at [facility] [id number] [place] [address]Ylbswrz r: ELICEO CHACON DO,MPH Panel Description: HIV 1/2 ANTIGEN/ANTIBODY,FOURTH GENERATION W/RFL HIV NON-REACTIVE NON-REACTIVE N HIV-1 antigen and HIV-1/HIV- 2 antibodies were AG/AB, 13:50:00 notdetected. There is no laboratory evidence of 4TH GEN HIVinfection. PLEASE NOTE: This information has been disclosed toyou from records whose confidentiality may beprotected by state law. If your state requires suchprotection, then the state law prohibits you frommaking any further disclosure of the informationwithout the specific written consent of the personto whom it pertains, or as otherwise permitted by law.A general authorization for the release of medical orother information is NOT sufficient for this purpose. For additional information please refer tohttp://[employer]/faq/XJO170(This link is being provided for informational/educational purposes only.) The performance of this assay has not been clinicallyvalidated in patients less than 2 years old. Test performed at [facility] [id number] [place] [address]Majihqsi: ELICEO CHACON DO,MPH Panel Description: Bacteria identified in Urine by Culture CULTURE, URINE, 13:47:00 SEE NOTE A CULTURE, URINE, ROUTINE ROUTINE MICRO NUMBER: [id number] TEST STATUS: PRELIMINARY SPECIMEN SOURCE: URINE, CLEAN CATCH SPECIMEN QUALITY: ADEQUATE RESULT: 10,000-50,000 CFU/mL of Escherichia coli , susceptibility test report to follow.REPORT COMMENT:RTest performed at [facility] [id number] [place] [address]Pookfzly: ELICEO CHACON DO,MPH Panel Description: Bacteria identified in Urine by Culture CULTURE, URINE, 13:47:00 SEE NOTE A CULTURE, URINE, ROUTINE ROUTINE MICRO NUMBER: [id number] TEST STATUS: FINAL SPECIMEN SOURCE: URINE, CLEAN CATCH SPECIMEN QUALITY: ADEQUATE RESULT: 10,000-50,000 CFU/mL of Escherichia coli 10,000-50,000 CFU/mL of Enterococcus species E.coli Enterococcus sp. INT BIRTTANY INT BRITTANY AMOX/CLAVULANATE S <=2 * AMPICILLIN S <=2 S <=2 AMP/SULBACTAM S <=2 * CEFAZOLIN NR <=4 1 * CEFEPIME S <=1 * CEFTRIAXONE S <=1 * CIPROFLOXACIN S <=0.25 * ERTAPENEM S <=0.5 * GENTAMICIN S <=1 * IMIPENEM S <=0.25 * LEVOFLOXACIN S <=0.12 * NITROFURANTOIN S <=16 S <=16 PIP/TAZOBACTAM S <=4 * TOBRAMYCIN S <=1 * TRIMETHOPRIM/SULFA S <=20 * VANCOMYCIN * S 1S=Susceptible I=Intermediate R=Resistant *=Not TestedNR=Not Reported NN=See Therapy CommentsTHERAPY COMMENTS Note 1: ORAL therapy: A cefazolin BRITTANY of < 32 predicts susceptibility to the oral agents cefaclor, cefdinir, cefpodoxime, cefprozil, cefuroxime, cephalexin, and loracarbef when used for therapy of uncomplicated UTIs due to E. coli, K. pneumoniae, and P. mirabilis. PARENTERAL therapy: A cefazolin BRITTANY of > 8 indicates resistance to parenteral cefazolin. An alternate test method must be performed to to confirm susceptibility to parenteral cefazolin.REPORT COMMENT:RTest performed at [facility] [address] [address]Jlajzbfu: ELICEO CHACON DO,MPH Panel Description: CHLAMYDIA/N. GONORRHOEAE RNA, TMA CHLAMYDIA NOT DETECTED NOT DETECTED N TRACHOMATIS RNA, 13:49:00 TMA NEISSERIA NOT DETECTED NOT DETECTED N GONORRHOEAE RNA, 13:49:00 TMA [id number] SEE NOTE This test was 13:49:00 performed using the APTIMA COMBO2 Assay([employer] The analytical performance characteristics of this assay, when used to test SurePath specimens havebeen determined by [employer]. Test performed at [facility] [address] [address]Ppgrmsgh: ELICEO CHACON DO,MPH Advance Directives Directive Yes / No Effective Date File Name Unknown Encounters Encounter Practice Location Reason(s) Diagnoses Date Provider Care Team Description For Visit Members Rosalina Murray2 Kadeem In [facility] 8-[address], [address] [place] [address] 1522, [place] Goel, 120, [place], [place], [id number], [place], [place] [id number] tel:[phone] , [place]. [id number] tel: [phone] Rosalina Colmenares Encntr screen for [place]-2 Kadeem Referring In Womens infections w sexl 6-201 [place]. 700 Provider: Wendy VASQUEZ, mode of 7 [facility] Kadeem Delacruz, 1522, for screening for [place] Goel, ot infec/parastc 120, Medical [place], diseasesEnclucile [facility] [id number], for suprvsn of [place], [place] 120, [place] normal , [id number] [place], tel: first , [place]. [place] trimesterEncounter tel:[phone]. for [id number] tel: screening of [id number] tltrap11 weeks gestation of Associates [place]-2 Kadeem In Womens 4-201 [place]. 700 Health PEDRO, 7 [facility] [address] [place] 1522, [place] Goel, 120, [place], [place], [id number], [place], [place] [id number] tel: , [place]. tel: [phone] Associates [place] Incomplete Apr-1 Kadeem Referring In Womens spontaneous 8- [place]. 700 Provider: Health PEDRO, without 7 Medical [facility] Box complication Center Kadeem Delacruz, 1522, [place] Goel, 120, Medical Darrian [facility] , [place], [place] 120, [place] [id number] [place], tel: , [place]. [place], tel:[phone]. [id number] tel:[phone] Associates [place] Incomplete Apr-1 Kadeem Referring In Womens spontaneous 8-201 [place]. 700 Provider: Health PEDRO, without 7 Medical [facility] Box complication Center Kadeem Delacruz, 1522, [place] Goel, 120, Medical [place] [facility] , [place], [place] 120, [place] [id number] [place], tel: , [place]. [place], tel:[phone]. [id number] tel:[phone] Rosalina Colmenares Threatened Apr-1 Kadeem Referring In Womens 7-201 [place]. 700 Provider: Wendy VASQUEZ, 7 [facility] Box Center Kadeem Delacruz, 1522, [place] Goel, 120, Medical [place]rian [facility] [id number], [place], [place] 120, [place] [id number] [place], tel: , [place]. [place], tel: [phone]. 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 Provider: Health PEDRO, w/o abn findingsPap [address] [place] [address] Box Smear Screening, [facility] Kadeem Delacruz, 1522, Cervix Center [address] [place], [facility] [place], 120, [place] [id number], Colmen[place], [facility] 120, [place] Darrian CHILD, tel: [phone] [place], , [place]. [id number]. 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 700 Provider: Health PEDRO, w/o abn findingsPap 5 [facility] PO Box Smear Screening, Center Carlo J, 1522, Cervix , [facility] 700 [place], 120, Medical Darrian [facility] [id number], [place], [place] 120, [place] [id number] [place], tel: , [place]. [place], tel: [phone]. [id number] tel:[phone] Rosalina Colmenares Hernan-2 Kadeem Referring In Womens 9- [place]. 700 Provider: Wendy VASQUEZ, 5 [facility] Kadeem Delacruz, 1522, , [place] 700 [place], 120, Medical Darrian [facility] [id number], [place], [place] 120, [place] [id number] [place], tel: , [place]. [place], tel: [phone]. [id number] tel:[phone] Rosalina Colmenares Nov-0 Kadeem Referring In Womens 6-201 [place]. 700 Provider: Wendy VASQUEZ, 4 [facility] Box [place] Kadeem Delacruz, 1522, , [place] 700 [place], 120, Medical Darrian CHILD, [place] [id number], [place], [place] 120, [place] [id number] [place], tel: , [place]. [place], [address] tel: [phone]. [id number] tel:[phone] Associates [place] Kadeem In Womens 6-[address], 0 Medical [facility] Center 1522, [place] Goel, 120, [place], [place], [id number], [place], [place] [id number] tel: , [place]. tel: [phone] Family History Family Member Diagnosis Age At [...] older Payers Payer name Insurance type Covered constitution party ID Authorization(s) [facility] [id number] [facility] [id number] [facility] [id number] [facility] [id number] Social History Type Description Quantity Date Captured [...]
--- OUTSIDE RECORDS SUMMARY | 2018-01-08 16:48 | External Medical Summary | Continuity of Care Document ---
:1985 Author Organization [facility] Allergies Active Description Code Type Severity Reaction Onset Reported/ Identified Relationship Clinical to Patient Status Yes No Known 34863 3 N/A N/A Drug 0 Allergies Medications Medication Packaging Start Date Stop Date Route Dosage Sig Tablet 01/08/2016 DANIEL take 1 tablet by oral route every day Tablet 09/25/2016 DANIEL 7 take 1 tablet by oral route every day Tablet 06/16/[address] 1 Tablespoon by Buccal route every 6 hours as needed for nausea Tablet 06/16/2017 ONDANSETRON HCL 7 take 1 by Oral route every 6 hours Capsule 06/20/2017 AMOXICILLIN 7 take 1 capsule by oral route every 8 hours Problems Date Dx Attending Type Code Diagnosis Diagnosed By Coded 03/11/2017 Freddie Quan W O20.0 Threatened 03/11/2017 Freddie Quan O20.0 Threatened 03/13/2017 Freddie Quan O03.4 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 03/13/2017 Freddie Quan W O03.4 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 03/13/2017 Freddie Quan O03.4 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 03/18/2017 Freddie Quan W O20.0 Threatened 03/18/2017 Freddie Quan W O20.0 Threatened 03/18/2017 Freddie Quan W O20.0 Threatened 03/20/2017 Freddie Quan W O20.0 Threatened 03/20/2017 Freddie Quan W O20.0 Threatened 03/20/2017 Freddie Quan W O20.0 Threatened 03/20/2017 Freddie Quan W O20.0 Threatened 03/20/2017 Freddie Quan W O20.0 Threatened 03/20/2017 Freddie Quan W O20.0 Threatened 08/28/2017 Freddie Quan Z34.82 Encounter for suprvsn of normal , second trimester 08/28/2017 Freddie Quan Z36.3 Encounter For Screening For Malformations 08/28/2017 Freddie Quan Z3A.20 20 weeks gestation of 12/02/2017 Elisabeth Guillory Z34.83 Encounter for L suprvsn of normal , third trimester 12/02/2017 Elisabeth Guillory Z3A.34 34 weeks gestation L of Procedures Code Description [place] [address] Venpnctr 03/10/2017 fngr/heel/ear stick routne 76090 Chorionic 03/10/2017 gonadotropin test 61899 Treatment of 03/11/2017 incomplete 14023 Ultrasnd exam 08/28/2017 of preg uterus, compl 26017 OB Visit No 12/02/2017 Charge Results There is no data. Encounters ACCT No. Visit Discharge Status Pt. Type Provider Facility Loc./Unit Complaint Date/Time [id number] 12/26/2017 12/26/2017 CLS Outpatient Kadeem, 10:30:00 23:59:59 Freddie Delacruz [id number] 12/18/2017 12/18/2017 CLS Outpatient Kadeem, 09:30:00 23:59:59 Freddie Delacruz [id number] 12/02/2017 12/02/2017 CLS Outpatient Pastora, 09:30:00 23:59:59 Elisabeth Manning [id number] 11/18/2017 11/18/2017 CLS Outpatient Kadeem, 10:20:00 23:59:59 Freddie Delacruz [id number] 11/04/2017 11/04/2017 CLS Outpatient Kadeem, 08:40:00 23:59:59 Freddie Delacruz [id number] 10/21/2017 10/21/2017 CLS Outpatient Kadeem, 09:15:00 23:59:59 Freddie Delacruz [id number] 09/25/2017 09/25/2017 CLS Outpatient Kadeem, 09:30:00 23:59:59 Freddie Delacruz [id number] 09/24/2017 09/24/2017 CLS Outpatient Kadeem, 11:04:00 23:59:59 Freddie Delacruz [id number] 09/21/2017 09/21/2017 CLS Outpatient Kadeem, 17:03:00 23:59:59 Freddie Delacruz [id number] 08/28/2017 08/28/2017 CLS Outpatient Kadeem, 09:45:00 23:59:59 Freddie Delacruz [id number] 08/28/2017 08/28/2017 CLS Outpatient Kadeem, 09:15:00 23:59:59 Freddie Delacruz [id number] 08/14/2017 08/14/2017 CLS Outpatient Kadeem, 09:30:00 23:59:59 Freddie Delacruz [id number] 07/17/2017 07/17/2017 CLS Outpatient Kadeem, 10:00:00 23:59:59 Freddie Delacruz [id number] 06/20/2017 06/20/2017 CLS Outpatient Kadeem, 08:16:00 23:59:59 Freddie Delacruz [id number] 06/18/2017 06/18/2017 CLS Outpatient Kadeem, 13:15:00 23:59:59 Freddie Delacruz [id number] 06/16/2017 06/16/2017 CLS Outpatient Kadeem, 09:57:00 23:59:59 Freddie Delacruz [id number] 03/11/2017 03/11/2017 CLS Outpatient Kadeem, 20:23:00 23:59:59 Freddie Delacruz [id number] 03/11/2017 03/11/2017 CLS Outpatient Kadeem, 13:00:00 23:59:59 Freddie Delacruz [id number] 03/10/2017 03/10/2017 CLS Outpatient Kadeem, 08:40:00 23:59:59 Freddie Delacruz [id number] 07/18/2016 07/18/2016 CLS Outpatient Kadeem, 16:15:00 23:59:59 Freddie Delacruz [id number] 01/08/2016 01/08/2016 CLS Outpatient Kadeem, 10:37:00 23:59:59 Freddie Delacruz [id number] 12/27/2015 12/27/2015 CLS Outpatient Kadeem, 11:14:00 23:59:59 Freddie Delacruz [id number] 11/18/2015 11/18/2015 CLS Outpatient Kadeem, 10:53:00 23:59:59 Freddie Delacruz [id number] 11/06/2015 11/06/2015 CLS Outpatient Kadeem, 13:03:00 23:59:59 Freddie Delacruz [id number] 09/13/2015 09/13/2015 CLS Outpatient Kadeem, 08:45:00 23:59:59 Freddie Delacruz [id number] 01/08/2018 Document 16:00:00 Registration [id number] 01/08/2018 Document 09:20:00 Registration [id number] 01/01/2018 Document 09:30:00 Registration [id number] 09/25/2016 Document 08:45:00 Registration
--- OUTSIDE RECORDS SUMMARY | 2018-01-08 16:48 | External Medical Summary | Continuity of Care Document ---
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 Encntr screen for infections w sexl - mode of transmiss Encounter for screening for oth - infec/parastc diseases Encounter for suprvsn of normal - , first trimester Encounter for screening of - mother 10 weeks gestation of - 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 [place], tel: [phone]. [id number] tel:[phone] Rosalina Colmenares Encounter for Aug-0 Kadeem Referring In Womens Ultrasound suprvsn of normal 5-201 [place]. 700 Provider: Wendy VASQUEZ, , second 7 Medical Freddie PO Box trimesterEncounte Center Kadeem R, 1522, r For [place] Goel, Screening For 120, Medical MATEUSZ, [id number] [facility] [id number], weeks gestation MATEUSZ [facility] 120, [place] of [id number] Darrian, tel: , . [place], tel: [phone]. [id number] tel:[phone] Rosalina Colmenares Encounter for Sep-2 Kadeem Referring In Womens suprvsn of normal 1-201 [place]. 700 Provider: Wendy VASQUEZ, , second 7 Medical Freddie PO Box [email or web address] weeks Center Kadeem R, 1522, gestation of [place] Goel, 120, Medical MATEUSZ [facility] [id number], [place], [place] 120, [place] [id number] [place], tel: , [place]. [place] tel: [phone]. [id number] tel:[phone] Rosalina Colmenares Encounter for Aug-2 Kadeem Referring In Womens suprvsn of normal 4-201 [place]. 700 Provider: Health PA, , second 7 Medical Freddie PO Box [email or web address] weeks Center Kadeem R, 1522, gestation of [place] Goel, 120, Medical [facility] [id number], [place], [place] 120, [place] [id number] [place], tel: , [place]. [place], tel: [phone]. [id number] tel:[phone] Rosalina Colmenares Encntr screen for [place]icho-2 Kadeem Referring In Womens infections w sexl 6-201 [place]. 700 Provider: Health PEDRO, mode of 7 Medical Freddie PO Box transmissEncounte Center Kadeem R, 1522, r for screening [place] Goel, for oth 120, Medical [place], infec/parastc Darrian [place] [id number], diseasesEncounter [place], [place] 120, [place] for suprvsn of [id number] Darrian, tel: normal , , [place]. [place], first tel: [phone]. trimesterEncounte [id number] tel: r for [phone] screening of weeks gestation of Rosalina Colmenares Incomplete Apr-1 Kadeem Referring In Womens spontaneous 8-201 [place]. 700 Provider: Wendy VASQUEZ, without 7 Medical Freddie PO Box complication Center Kadeem R, 1522, [place] Goel, 120, Medical [facility] [id number], [place], [place] 120, [place] [id number] [place], tel: , [place]. [place] tel: [phone]. [id number] tel:[phone] Rosalina Colmenares Incomplete Apr-1 Kadeem Referring In Womens spontaneous 8-201 [place]. 700 Provider: Health PEDRO, without 7 Medical Freddie PO Box complication Center Kadeem R, 1522, [place] Goel, 120, Medical Darrian CHILD, [place] [id number], [place], [place] 120, [place] [id number] [place], tel: , [place]. [place], tel: [phone]. [id number] tel:[phone] Associates [place] Wayne Kadeem Referring In Womens [place]. 700 Provider: Wendy VASQUEZ, 7 [facility] PO Box Center Kadeem R, 1522, , [place] 700 [place], 120, Medical Darrian CHILD, [place] [id number], [place], [place] 120, [place] [id number] [place], tel: , [place]. [place], tel: [phone]. 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 Provider: Wendy VASQUEZ, (routine) w/o abn [address] [place] [address] Box findingsPap Smear [facility] Kadeem R, 1522, Screening, Cerv[facility] Center [address] [place], [facility], 120, [place] [id number], [place], [facility] 120, [place] Darrian CHILD, tel: [phone] [place], , [place]. [id number]. tel: tel: [phone] Associates [place] Encntr for medication administration professional Aug- Kadeem Referring In Womens exam (general) [place]. 700 Provider: Wendy VASQUEZ, (routine) w/o abn 5 [facility] PO Box findingsPap Smear Center Matos J, 1522, Screening, Cervix , [place] 700 [place], 120, Medical [facility] [id number], [place], [place] 120, [place] [id number] [place], tel: , [place]. [place], tel: [phone]. [id number] tel:[phone] Rosalina Colmenares Kadeem Referring In Womens [place]. 700 Provider: Wendy VASQUEZ, 5 [facility] Box [place] Kadeem R, 1522, , [place] 700 [place], 120, Medical Darrian CHILD, [place] [id number], [place], [place] 120, [place] [id number] Darrian, tel: , [place]. [place], tel: [phone]. [id number] tel:[phone] Rosalina Colmenares Kadeem Referring In Womens 6-201 [place]. 700 Provider: Health [place], 4 [facility] PO Box [place] [address] [place], [facility], [facility], [facility] [id number], [place], [place] [address], [id number] Darrian, tel: , . [place], tel: [phone]. [id number] tel:[phone] Rosalina Colmenares Kadeem In Womens 6-201 [place]. 700 Health PA, 0 [facility] PO Box Center [address] [place], 120, Darrian CHILD [id number], [place], [id number] tel: , . tel: [phone] Family History Family Member Diagnosis Age At [...] Insurance type Covered green party ID Authorization(s) [facility] [id number] [facility] BL [id number] [facility] [id number] [facility] [id number] Social History Type Description Quantity Date Captured Alcohol Use Details No Caffeine Use Details Unknown Tobacco Use Status Unknown Smoking Status Never smoker Vital Signs Date / Height Weight BMI Pulse Blood Temperature Respiratory Body Head BMI Time: Rate Pressure Rate Surface Circumference percentile Area 160.90 24.4 / lbs 6 mm[Hg] 9:51 kg/m AM eter (2) Chief Complaint And [...] Complete OB Ultrasound > 14 Ordered Weeks (84007) Date Type Problem Goal Intervention Status Start [...]
--- OUTSIDE RECORDS SUMMARY | 2018-01-08 16:48 | External Medical Summary | Continuity of Care Document ---
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 Encntr screen for infections w sexl - mode of transmiss Encounter for screening for oth - infec/parastc diseases Encounter for suprvsn of normal - , first trimester Encounter for screening of - mother 10 weeks gestation of - 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 Threatened 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) (routine) w/o abn findings Pap Smear Screening, Cervix - Pap Smear Screening, Cervix - Encounter for suprvsn of normal - , second trimester 14 weeks gestation of - Encounter for suprvsn of normal - , second trimester 18 weeks gestation of - Encounter for suprvsn of normal - , second trimester 20 weeks gestation of - Active Procedures Procedure Date Ultrasound exam of preg uterus, complete Results Test Name Date and Time Measure Units Reference Range Abnormal Flag Comments Unknown Advance Directives Directive Yes / No Effective Date File Name Unknown Encounters Encounter Practice Location Reason(s) Diagnoses Date Provider Care Team Description For Visit Members Rosalina Colmenares Encounter for Aug- Kadeem Referring In Womens suprvsn of normal 5-201 Freddie. 700 Provider: Wendy VASQUEZ, , second 7 Medical Freddie [address] [id number] weeks Center Kadeem R, 1522, gestation of Ever[place] Goel, 120, Medical [facility] [id number], [place], [place] 120, [place] [id number] [place], tel:+ , [place]. [place], tel: [phone]. [phone] tel:[phone] Rosalina Colmenares Encounter for Aug-0 Kadeem Referring In Womens Ultrasound suprvsn of normal 5-201 Freddie. 700 Provider: Wendy VASQUEZ, , second 7 Medical Freddie PO Box trimesterEncounte Center Kadeem R, 1522, r For [place] Goel, Screening For 120, Medical MATEUSZ, [id number] [facility] [id number], weeks gestation MATEUSZ [place] 120, [place] [id number] [place], tel: , [place]. [place], tel: [phone]. [id number] tel:[phone] Rosalina Colmenares Encounter for Jul- Kadeem Referring In Womens suprvsn of normal 1-201 Freddie. 700 Provider: Wendy VASQUEZ, , second 7 Medical Freddie PO Box [id number] weeks Center Kadeem R, 1522, gestation of Ever[place] Goelta, 120, Medical [facility] [id number], [place], [place] 120, [place] [id number] [place], tel: , [place]. [place] tel: [phone]. [id number] tel:[phone] Rosalina Colmenares Encounter for Aug-2 Kadeem Referring In Womens suprvsn of normal 4-201 [place]. 700 Provider: Health PA, , second 7 Medical Freddie PO Box [id number] weeks Center Kadeem R, 1522, gestation of [place] Goel, 120, Medical [facility] [id number], [place], [place] 120, [place] [id number] [place], tel: , [place]. [place], tel: [phone]. [phone] tel:[phone] Rosalina Colmenares Encntr screen for [place]-2 Kadeem Referring In Womens infections w sexl 6-201 [place]. 700 Provider: Health PERDO, mode of 7 Medical Freddie PO Box transmissEncounte Center Kadeem R, 1522, r for screening [place] Goel, for oth 120, Medical MATEUSZ, [facility] [id number], diseasesEncounter [place], [facility] 120, [place] for suprvsn of [id number] [place], tel: normal , , [place]. [place], first tel: [phone]. trimesterEncounte [id number] tel: r for [phone] screening of [id number] weeks gestation of Rosalina Colmenares Incomplete Apr-1 Kadeem Referring In Womens spontaneous 8-201 [place]. 700 Provider: Wendy VASQUEZ, without 7 Medical Freddie PO Box complication Center Kadeem R, 1522, [place] Goel, 120, Medical [facility] [id number], [place], [place] 120, [place] [id number] [place], tel: , [place]. [place] tel: [phone]. [id number] tel:[phone] Rosalina Colmenares Incomplete Apr-1 Kadeem Referring In Womens spontaneous 8-201 [place]. 700 Provider: Health PEDRO, without 7 Medical Freddie PO Box complication Center Kadeem R, 1522, [place] Goel, 120, Medical [place] CHILD, [place] [id number], [place], [facility] 120, [place] [id number] [place], tel: , [place]. [place], tel: [phone]. [id number] tel:[phone] Rosalina Wayne Feb- Kadeem Referring In Womens [place]. 700 Provider: Wendy VASQUEZ, 7 [facility] PO Box [place] Kadeem Delacruz, 1522, , [place] 700 [place], 120, Medical [place] CHILD, [place] [id number], [place], [place] 120, [place] [id number] [place], tel: , [place]. [place], tel: [phone]. 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 Provider: Health PEDRO, (routine) w/o abn [address] [place] [address] Box findingsPap Smear [facility] Kadeem Delacruz, 1522, Screening, Cervix Center [address], [facility], 120, [place] [id number], [place], [facility] 120, [place] CHILD, tel: [phone] [place], , [place]. [id number]. 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 700 Provider: Wendy VASQUEZ, (routine) w/o abn 5 [facility] PO Box findingsPap Smear Center Carlo J, 1522, Screening, Cervix , [place] 700 [place], 120, Medical [facility] [id number], [place], [place] 120, [place] [id number] [place], tel: , [place]. [place], tel: [phone]. [phone] tel:[phone] Rosalina Colmenares Hernan- Kadeem Referring In Womens [place]. 700 Provider: Wendy VASQUEZ, 5 [facility] Box [place] Kadeem R, 1522, , [place] 700 [place], 120, Medical [place] CHILD, [place] [id number], [place], [place] 120, [place] [id number] [place], tel: , [place]. [place] tel: [phone]. [phone] tel:[phone] Rosalina Colmenares Sep-0 Kadeem Referring In Womens 6-201 [place]. 700 Provider: Health PA, 4 [facility] PO Box [place] Kadeem Delacruz, 1522, Ever[place] Goel, 120, [facility], [facility] [id number], [place], [place] [address], [place] [id number] [place], tel: , . [place], tel: [phone]. [phone] tel:[phone] Rosalina Colmenares Aug-2 Kadeem In Womens 6-201 [place]. 700 Health PA, 0 Medical PO Box Center 1522, [place] Goel, 120, [place] CHILD, [id number], [place], [id number] tel: , . tel: [phone] Family History Family Member Diagnosis Age At [...] Insurance type Covered green party ID Authorization(s) [facility] [id number] [facility] [id number] [facility] [id number] [facility] [id number] Social History Type Description Quantity Date Captured [...] Status Appointment Elaina Marinelli BOOKED Future Order: Radiology Order Complete OB Ultrasound > 14 Ordered Weeks (87192) Future Order: Lab Order Pap Smear With [...]
--- OUTSIDE RECORDS SUMMARY | 2018-01-08 16:48 | External Medical Summary | Referral Summary ---
:1985 Author Organization [facility] Address [address] [place] [address] Care Team Providers Name Role Phone No PCP, [facility] Primary Care Physician Encounter [facility] [id number] Date(s): 01/02/17 - 01/02/17 [facility] [address] [place] [address] - [place] Discharge Diagnosis: Chest pain Discharge Diagnosis: Acute costochondritis Discharge Disposition: 01-Home or Self Care Attending Physician: Provider, Immediate Care Attending Physician: Marge Weinberg APRN Admitting Physician: Provider, Immediate Care Vital Signs Most recent to oldest [Reference Range]: 1 Temperature Oral [35.8-37.3 degC] 36.6 degC (01/02/17 10:35 AM) Peripheral Pulse Rate [60-100 bpm] 66 bpm (01/02/17 10:35 AM) Blood Pressure [90-140/60-90 mmHg] 114/80 mmHg (01/02/17 10:35 AM) SpO2 99 % (01/02/17 10:35 AM) Problem List No data available for this section Allergies, Adverse Reactions, Alerts No Known Medication Allergies Medications Vitamin B Complex 100 0 Refill(s) Start Date: 01/02/17 Status: OrderedVitamin D with Minerals oral tablet tabs, Oral, Daily, 0 Refill(s) Start Date: 01/02/17 Status: Ordered Results Hematology Most recent to oldest [Reference Range]: 1 WBC [4.8-10.8 10*3/uL] 6.0 10*3/uL (01/02/17 11:37 AM) RBC [4.00-5.20] 5.22 *HI* (01/02/17 11:37 AM) Hgb [12.0-16.0 gm/dL] 15.3 gm/dL (01/02/17 11:37 AM) Hct [37.0-47.0 %] 44.8 % (01/02/17 11:37 AM) MCV [82.0-99.0 fL] 85.8 fL (01/02/17 11:37 AM) MCH [27.0-32.0 pg] 29.3 pg (01/02/17:37 AM) MCHC [32.0-36.0 gm/dL] 34.2 gm/dL (01/02/17 11:37 AM) RDW [11.5-14.5 %] 11.8 % (01/02/17 11:37 AM) Platelet [150-400 10*3/uL] 273 10*3/uL (01/02/17 11:37 AM) MPV [8.8-14.8 fL] 10.5 fL (01/02/17 11:37 AM) Immature Granulocytes [0.0-1.0 %] 0.2 % (01/02/17 11:37 AM) Neutrophils [51-75 %] 39 % *LOW* (01/02/17 11:37 AM) Lymphocytes [20-46 %] 42 % (01/02/17 11:37 AM) Monocytes [4-11 %] 6 % (01/02/17 11:37 AM) Eosinophils [0-4 %] 13 % *HI* (01/02/17 11:37 AM) Basophils [0-2 %] 1 % (01/02/17 11:37 AM) Neutro Absolute [1.90-7.00] 2.37 (01/02/17 11:37 AM) Lymph Absolute [0.80-3.30] 2.52 (01/02/17 11:37 AM) Loíza Absolute [0.30-1.00] 0.34 (01/02/17 11:37 AM) Eos Absolute [0.00-0.50] 0.77 *HI* (01/02/17 11:37 AM) Baso Absolute [0.00-0.20] 0.03 (01/02/17 11:37 AM) Coagulation Most recent to oldest [Reference Range]: 1 D-Dimer [0-500 ng{FEU}/mL] 239 ng{FEU}/mL (01/02/17 11:37 AM) Chemistry Most recent to oldest [Reference Range]: 1 Troponin [0.00-0.01 ng/mL] 0.00 ng/mL (01/02/17 11:37 AM) Sodium Venous [136-144 mmol/L] 141 mmol/L (01/02/17 11:37 AM) Potassium Venous [3.6-5.1 mmol/L] 3.7 mmol/L 1 (01/02/17 11:37 AM) Calcium Ionized Venous [1.19-1.41 mmol/L] 1.19 mmol/L (01/02/17 11:37 AM) Total CO2 Venous [25-29 mmol/L] 26 mmol/L (01/02/17 11:37 AM) Glucose Venous [70-100 mg/dL] 85 mg/dL (01/02/17 11:37 AM) BUN Venous [4-20] 12 (01/02/17 11:37 AM) Creatinine Venous [0.4-1.0 mg/dL] 0.7 mg/dL (01/02/17 11:37 AM) Venous CL [99-109 mmol/L] 100 mmol/L (01/02/17 11:37 AM) 1Result Comment: This test was performed on a whole blood specimen. The presence or absence of hemolysis cannot be assessed. Hemolysis can falsely elevate potassium levels. Normals are for venous specimens only. Immunizations No data available for this section Procedures Procedure Date Related Diagnosis Body Site Collection of venous blood by venipuncture 01/02/17 Collection of venous blood by venipuncture 01/02/17 Collection of venous blood by venipuncture 01/02/17 Social History Social History Type Response Smoking Status Never smoker Assessment and Plan Extracted from: Title: Office Visit Note Author: Marge Weinberg APRN Date: 01/02/17 Assessment/Plan 1.Chest pain EKG obtained, CBC, D-Dimer, Metabolic panel, Troponin. Elevated T wave in V leads on the EKG. Chest pain has been ongoing for the past month. All lab work is negative for any acute cardiac injury. Likely costochondritis. Toradol 60mg IM given to help with the pain to see if resolves. Ordered: Office Visit Level 4 Est [id number] 2.Acute costochondritis Toradol 60mg x1 given. If helps, recommend naproxen or ibuprofen for the next 2 weeks.
--- OUTSIDE RECORDS SUMMARY | 2018-01-08 16:48 | External Medical Summary | Continuity of Care Document ---
:1985 Author Organization [facility] Address [address] [place], [place] [id number] Phone Support Name Relationship Address Phone Indio Marinelli spouse [address] [facility] [phone] [place] [address] Allergies, Adverse Reactions, Alerts Substance Reaction Severity Status No Known Drug Allergies Unknown Active Medications Medication Instructions Dosage Effective Status Comments Dates (start - stop) amoxicillin 500 mg take 1 capsule by 500 MG - Active capsule oral route every 8 hours ondansetron HCl 4 mg take 1 by Oral Not Available - Active tablet route every 6 hours VITAMIN B-6 (unknown - Active strength) Probiotic 10 billion - Active cell capsule 28 mg take 1 tablet by Not Available - Active iron-800 mcg tablet oral route every day Zyrtec-D 5 mg-120 mg take 1 tablet by Not Available - Active tablet,extended oral route every release 12 hours Unisom Sleepgels 50 take 1 capsule by 50 MG - Active mg capsule oral route every day at bedtime as needed Calcium Magnesium - Active 500 mg calcium-250 mg tablet ondansetron [address] 1 Not Available - No Longer disintegrating Tablespoon by Active tablet Buccal route every 6 hours as needed for nausea Problems Condition Effective Dates (start - stop) Clinical Status 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) - (routine) w/o abn findings 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 Encntr screen for infections w sexl - mode of transmiss Encounter for screening for oth - infec/parastc diseases Encounter for suprvsn of normal - , first trimester Encounter for screening of - mother 10 weeks gestation of - 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 Threatened 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) (routine) w/o abn findings Pap Smear Screening, Cervix - Pap Smear Screening, Cervix - Active Procedures Procedure Date Unknown Results Test Name Date and Time Measure Units Reference Range Abnormal Flag Comments Unknown Advance Directives Directive Yes / No Effective Date File Name Unknown Encounters Encounter Practice Location Reason(s) Diagnoses Date Provider Care Team Description For Visit Members Rosalina Colmenares May-2 Kadeem In Womens 8 [place]. 700 Health PEDRO, 7 Medical PO Box Center [place], [place] Goel, 120, [place], [id number], [place], [place] [id number] tel: , [place]. tel: [phone] Rosalina Colmenares Encntr screen for May-2 Kadeem Referring In Womens infections w sexl [place]. [facility] Provider: Wendy VASQUEZ, mode of 7 Medical [place] PO Box transmissEncounter [place] Kadeem R, 1522, for screening for [place] Goel, ot infec/parastc 120, Medical [place], [facility] [place] [id number], for suprvsn of [place], [place] 120, [place] normal , [id number] Dar[place], tel: [facility] , . [place] trimesterEncounter tel:[phone]. for [id number] tel: screening of [id number] weeks gestation of Rosalina Colmenares May-2 Kadeem In Womens -201 [place]. 700 Health PEDRO, 7 Medical PO Box Center 152[place], Ever[place] Goel, 120, Darrian CHILD, , [place], [place] [id number] tel: , [place]. tel: [phone] Rosalina Colmenares Incomplete Feb- Kadeem Referring In Womens spontaneous [place]. 700 Provider: Wendy VASQUEZ, without 7 Medical [place] PO Box complication Center Kadeem Delacruz, 1522, [place] Goel, 120, Medical [place] CH[address] [id number], [place], [place] 120, [place] [id number] [place], tel: , [place]. [place] tel: [phone]. [id number] tel:[phone] Rosalina Colmenares Incomplete Apr- Kadeem Referring In Womens spontaneous 8 [place]. 700 Provider: Wendy VASQUEZ, without 7 Medical [place] PO Box complication Center Kadeem R, 1522, , [place] 700 [place], 120, Medical Darrian CHILD, [place] [id number], [place], [place] 120, [place] [id number] [place], tel: , [place]. [place], tel: [phone]. [id number] tel:[phone] Rosalina Colmenares Threatened Apr- Kadeem Referring In Womens [place]. 700 Provider: Health PEDRO, 7 [facility] PO Box Center Kadeem Delacruz, 1522, , [place] 700 [place], 120, Medical [place] CHILD, [place] [id number], [place], [place] 120, [place] [id number] [place], tel: , [place]. [place] tel: [phone]. [phone] tel:[phone] Rosalina Colmenares Encntr for end user support specialist exam Nov-0 Matos Referring In Womens (general) (routine) 2 [facility]. Provider: Health PEDRO, w/o abn findingsPap [address] [place] [address] PO Box Smear Screening, Medical Kadeem Delacruz, 1522, Cervix Center [address], [facility] Medical [place], 120, [place] [id number], Darrian, [facility] 120, [place] Dar[place] CHILD, tel:[phone] [place] , [place]. [id number]. tel: tel: [phone] Rosalina Colmenares Encntr for end user support specialist exam Oct-2 Kadeem Referring In Womens (general) (routine) [place]. 700 Provider: Health PEDRO, w/o abn findingsPap 5 Medical [place] PO Box Smear Screening, Center Matos J, 1522, Cervix , [place] 700 [place], 120, Medical Darrian CHILD, [place] [id number], [place], [place] 120, [place] [id number] Dar[place], tel: , [place]. [place] tel: [phone]. [phone] tel:[phone] Rosalina Colmenares Kadeem Referring In Womens - [place]. 700 Provider: Health PEDRO, 5 [facility] Anahi Vivas, , [facility] 700 [place], 120, Medical Darrian [facility] [id number], [place], [facility] 120, [place] [id number] Dar[place], tel: , . [place], tel: [phone]. [id number] tel:[phone] Rosalina Colmenares Sep- Kadeem Referring In Womens 6-201 [place]. 700 Provider: Wendy VASQUEZ, 4 [facility] Ruth Vivas2, , [place] [address] [place], 120, Medical [facility] [id number], [place], [facility] 120, [place] [id number] Dar[place], tel: , . [place], tel: [phone]. [id number] tel:[phone] Rosalina Colmenares Kadeem In Womens - [place]. 700 Health PA, 0 [facility] Anahi, , [facility] [place], [facility], [place] [id number], [place], [id number] tel: , . tel: [phone] Family History Family Member Diagnosis Age At [...] Insurance type Covered green party ID Authorization(s) [facility] [id number] [facility] [id number] [facility] [id number] [facility] [id number] Social History Type Description Quantity Date Captured [...] Unknown Medications Administered Medication Instructions Dosage Effective Status Comments Dates (start - stop) ondansetron [address] 1 Not Available - No Longer disintegrating Tablespoon by Active tablet Buccal route every 6 hours as needed for nausea Instructions Date Instruction Additional Information environmental / work hazards travel tobacco (ask, advise, assess, assist and arrange) alcohol illicit / recreational drugs use of any medications (including supplements, vitamins, herbs, OTC drugs) smoking counseling domestic violence seat belt use childbirth classes / hospital facilities hospital registration genetic testing new ob handbook [facility] HIV and other routine tests risk factors identified by history anticipated course of care nutrition and weight gain counseling, special diet toxoplasmosis precautions (cats / raw meat) sexual activity exercise indications for ultrasound influenza vaccine Zika virus assessment & precautions
--- OUTSIDE RECORDS SUMMARY | 2018-01-08 16:48 | External Medical Summary | Continuity of Care Document ---
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) w/o abn findings 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 Encntr screen for infections w sexl - mode of transmiss Encounter for screening for oth - infec/parastc diseases Encounter for suprvsn of normal - , first trimester Encounter for screening of - mother 10 weeks gestation of - 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 Threatened 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 700 Wendy VASQUEZ, 7 Medical [address] [place] [address] [place], [facility], [place], [place], , [place], [place] [id number] tel: , [place]. tel: [phone] Rosalina Colmenares Encntr screen for [place]o-2 Kadeem Referring In Womens infections w sexl 6-201 [place]. 700 Provider: Wendy VASQUEZ, mode of 7 [facility] Kadeem Delacruz 1522, for screening for [place] Goel, [facility] infec/parastc 120, Medical [place] [facility] [place] [id number], for suprvsn of [place], [facility] 120, [place] normal , [id number] [place], tel: first , [place]. [place], trimesterEncounter tel:[phone]. for [id number] tel: screening of [id number] weeks gestation of Associates [place] Jericho-2 Kadeem In Womens 4-201 [place]. 700 Wendy VASQUEZ, 7 Medical [address] [place], [facility], [place], , [place] [id number] tel: , [place]. tel: [phone] Rosalina Colmenares Incomplete Apr- Kadeem Referring In Womens spontaneous 8-201 [place]. 700 Provider: Wendy VASQUEZ, without 7 [facility] PO Box complication Center Kadeem Delacruz [address] [place], 120, Medical [place] [address] [id number], [place], [place] 120, [place] [id number] [place] tel: , [place]. [place], tel:[phone]. [phone] tel:[phone] Rosalina Colmenares Incomplete Apr-1 Kadeem Referring In Womens spontaneous 8-201 [place]. 700 Provider: Health PEDRO, without 7 Medical [place] PO Box complication Center Kadeem Delacruz, 1522, , [place] [facility] [place], 120, Medical [place] [facility] [id number], [place], [facility] 120, [place] [id number] [place], tel: , [place]. [place], tel: [phone]. [phone] tel:[phone] Rosalina Colmenares Threatened Apr-1 Kadeem Referring In Womens 7-201 [place]. 700 Provider: Health PEDRO, 7 [facility] PO Box [address], [place] [facility] [place], 120, Medical [place] CHILD, [place] [id number], [place], [facility] 120, [place] [id number] [place], tel: , [place]. [place], tel: [phone]. 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 Provider: Health PEDRO, w/o abn findingsPap 6 700 [place] PO Box Smear Screening, [facility] Kadeem Delacruz, 1522, Cervix Center [address], [facility], 120, [place] [id number], Colmenares, [facility] 120, [place] CHILD, tel: [phone] [place], , [place]. [id number]. 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 700 Provider: Health PEDRO, w/o abn findingsPap 5 Medical [place] PO Box Smear Screening, Center Carlo J, 1522, Cervix , [place] [address] [place], 120, Medical [place] [facility] [id number], [place], [facility] 120, [place] [id number] [place], tel: , [place]. [place], tel: [phone]. [id number] tel:[phone] Rosalina Colmenares Hernan-2 Kadeem Referring In Womens 9-201 [place]. 700 Provider: Health PEDRO, 5 [facility] Kadeem Delacruz 1522, , [place] 700 [place], 120, Medical [facility] [id number], [place], [place] [address], [id number] [place], tel: , . [place], tel: [phone]. [id number] tel:[phone] Associates [place] Sep- Kadeem Referring In Women 6 [place]. 700 Provider: Health PEDRO, 4 [facility] Kadeem Delacruz, 1522, , [place] 700 [place], 120, Medical [place] [facility] [id number], [place], [facility] 120, [place] [id number] [place], tel: , . [place], tel: [phone]. [id number] tel:[phone] Rosalina Colmenares Aug- Kadeem In Women - [place]. 700 Health [place], 0 [facility] 1522, , [facility] [place], [facility], [place] [id number], [place], [id number] tel: , . tel: [phone] Family History Family Member Diagnosis Age At [...] Insurance type Covered green party ID Authorization(s) [facility] [id number] [facility] [id number] [facility] [id number] [facility] [id number] Social History Type Description Quantity Date Captured Unknown Vital Signs Date / Height Weight BMI Pulse Blood Temperature Respiratory Body Head BMI Time: Rate Pressure Rate Surface Circumference percentile Area Unknown Chief Complaint And Reason For Visit Unknown Chief Complaint And Reason For Visit Reason For Referral Reason For Referral Unknown Plan Of Care Date Type Action Status Aug-24-2017 Appointment Elaina Marinelli BOOKED Future Order: Lab [...]
--- OUTSIDE RECORDS SUMMARY | 2018-01-08 16:48 | External Medical Summary | Continuity of Care Document ---
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 Encntr screen for infections w sexl - mode of transmiss Encounter for screening for oth - infec/parastc diseases Encounter for suprvsn of normal - , first trimester Encounter for screening of - mother 10 weeks gestation of - 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 Threatened 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) (routine) w/o abn findings Pap [...] third trimester 30 weeks gestation of - Active Procedures Procedure Date Immuniz admnin, 1 vac, sngl/combo 19 Yrs + Flu Vaccine - Quadrivalent OB Visit No Charge Glucose test Hemoglobin count, colorimetric Hematocrit blood count Venpnctr fngr/heel/ear stick routne Results Test Name Date and Time Measure Units Reference Range Abnormal Flag Comments Panel Description: Glucose [Mass/volume] in Serum or Plasma --1 hour post 50 g glucose PO GLUCOSE, 115 mg/dL <140 N Test performed at [facility] SCREEN 09:29:00 [employer] [id number] (50G)-[address] [place] [address]Hgynkblx: ELICEO CHACON DO,MPH Panel Description: HEMOGLOBIN + HEMATOCRIT HEMOGLOBIN 09:29:00 12.2 g/dL 11.7-15.5 N HEMATOCRIT 09:29:00 34.4 % 35.0-45.0 L REPORT COMMENT:FASTING :NOTest performed at [facility] [id number] [place] [address]Drrctmhd: ELICEO CHACON DO,MPH Advance Directives Directive Yes [...] [place] Goel, 120, Medical [place] [facility] [id number], [place], [place] 120, [place] [id number] [place], tel:+3162 , [place]. [place], tel: [phone]. [phone] tel:[phone] Rosalina Colmenares Encounter for Nov-2 Kadeem Referring In Womens suprvsn of normal 8-201 [place]. 700 Provider: Health PA, , third 7 Medical Freddie PO Box [id number] weeks Center Kadeem R, 1522, gestation of [place] Goel, 120, Medical [place] [facility] [id number], [place], [place] 120, [place] [id number] [place], tel:+3162 , [place]. [place], tel: [phone]. [id number] tel:[phone] Rosalina Colmenares Encounter for Nov-0 Kadeem Referring In Womens suprvsn of normal 2-201 [place]. 700 Provider: Health PA, , second 7 Medical Freddie PO Box [id number] weeks Center Kadeem R, 1522, gestation of [place] Goel, 120, Medical [place] [facility] [id number], [place], [place] 120, [place] [id number] [place], tel:+ , [place]. [place], tel: [phone]. [id number] tel:[phone] Rosalina Colmenares Encounter for Oct-0 Kadeem Referring In Womens suprvsn of normal 5-201 [place]. 700 Provider: Health PA, , second 7 Medical Freddie PO Box [id number] weeks Center Kadeem R, 1522, gestation of [place] Goel, 120, Medical [place] [facility] [id number], [place], [place] 120, [place] [id number] [place], tel:+3162 , [place]. [place], tel: [phone]. [id number] tel:[phone] Rosalina Colmenares Encounter for Oct-0 Kadeem Referring In Womens Ultrasound suprvsn of normal 5-201 Freddie. 700 Provider: Health PEDRO, , second 7 Medical [facility] Box trimesterEncounte [place] Kadeem R, 1522, r For [place] Goel, Screening For 120, Medical [place], [id number] [place] [id number], weeks gestation MATEUSZ, [place] 120, [place] of [id number] [place], tel:+ , [place]. [place] tel:[phone]. [id number] tel:[phone] Rosalina Colmenares Encounter for Sep-2 Kadeem Referring In Womens suprvsn of normal 1-201 [place]. 700 Provider: Health PEDRO, , second 7 Medical [facility] Box [id number] weeks Center Kadeem R, 1522, gestation of [place] Goel, 120, Medical [place] [facility] [id number], [place], [place] 120, [place] [id number] [place], tel:+ , [place]. [place] tel: [phone]. [id number] tel:[phone] Rosalina Colmenares Encounter for Aug-2 Kadeem Referring In Womens suprvsn of normal 4-201 [place]. 700 Provider: Health PEDRO, , second 7 [facility] Box [id number] weeks Center Kadeem R, 1522, gestation of Eev[place] Goel, 120, Medical [place] [facility] [id number], [place], [place] 120, [place] [id number] [place], tel:+ , [place]. [place] tel: [phone]. [phone] tel:[phone] Rosalina Colmenares Encntr screen for Jericho-2 Kadeem Referring In Womens infections w sexl 6-201 [place]. 700 Provider: Health PEDRO, mode of 7 [facility] Box [facility] Kadeem R, 1522, r for screening [place] Goel, for oth 120, Medical MATEUSZ, infec/parastc [place] [id number], diseasesEncounter [place], [place] 120, [place] for suprvsn of [id number] [place], tel:[phone] normal , , [place]. [place] first tel: [phone]. trimesterEncounte [id number] tel: r for [id number] screening of [id number] weeks gestation of Associates [place] Incomplete Apr-1 Kadeem Referring In Womens spontaneous 8 [place]. 700 Provider: Wendy VASQUEZ, without 7 Medical [place] PO Box complication Center Kadeem Delacruz, 1522, , [place] [address] [place], 120, Medical [place] CHILD, [place] [id number], [place], [facility] 120, [place] [id number] [place], tel: , [place]. [place], tel: [phone]. [id number] tel:[phone] Rosalina Colmenares Incomplete Apr-1 Kadeem Referring In Womens spontaneous 8 [place]. 700 Provider: Wendy VASQUEZ, without 7 Medical [place] PO Box complication Center Kadeem Delacruz, 1522, , [place] [address] [place], 120, Medical [place] CHILD, [place] [id number], [place], [facility] 120, [place] [id number] [place], tel: , [place]. [place], tel: [phone]. [id number] tel:[phone] Rosalina Colmenares Threatened Apr-1 Kadeem Referring In Womens 7 [place]. 700 Provider: Wendy VASQUEZ, 7 [facility] Box [place] Kadeem Delacruz 1522, , [address], 120, Medical [place] [facility] [id number], [place], [facility] 120, [place] [id number] [place], tel: , [place]. [place], tel: [phone]. 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 Provider: Health PEDRO, (routine) w/o abn 6 700 [facility] Box findingsPap Smear Medical Kadeem Delacruz, 1522, Screening, Cervix Center [facility] Dr [place], [facility], 120, [place] [id number], [place], [facility] 120, [place] CHILD, tel: [phone] [place], , [place]. [id number]. 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 700 Provider: Health PEDRO, (routine) w/o abn 5 Medical [facility] findingsPap Smear Center Carlo Cherry, 1522, Screening, Cervix , [place] [facility] [place], 120, Medical [place] [facility] [id number], [place], [facility] 120, [place] [id number] [place], tel:+ , [place]. [place], tel: [phone]. [phone] tel:[phone] Roaslina Colmenares Kadeem Referring In Womens 9- [place]. 700 Provider: Wendy VASQUEZ, 5 [facility] Box [place] Kadeem Delacruz, 1522, , [place] Amna Colón, 120, Medical [place] [facility] [id number], [place], [facility] 120, [place] [id number] [place], tel:+ , . [place], tel: [phone]. [id number] tel:[phone] Rosalina Colmenares Sep- Kadeem Referring In Womens - [place]. 700 Provider: Wendy VASQUEZ, 4 [facility] Box [place] Kadeem Delacruz, 1522, , [place] Colón, 120, Medical [place] [facility] [id number], [place], [facility] 120, [place] [id number] [place], tel: , [place]. [place], tel: [phone]. [phone] tel:[phone] Rosalina Colmenares Kadeem In Womens -201 [place]. 700 Health PEDRO, 0 [facility] Box Center 1522, Dr [place], [facility], MADarrian [id number], [place], [place] [id number] tel:+ , . tel: [phone] Family History Family Member Diagnosis Age At [...] name Insurance type Covered democrat ID Authorization(s) [facility] [place] [id number] [place] [id number] [place] [id number] [place] [id number] [place] [id number] Social History Type Description Quantity Date Captured Alcohol Use Details No Caffeine Use Details Unknown Tobacco Use Status Unknown Smoking Status Never smoker Vital Signs Date / Height Weight BMI Pulse Blood Temperature Respiratory Body Head BMI Time: Rate Pressure Rate Surface Circumference percentile Area 176.20 26.7 138/78 -2017 lbs 9 mm[Hg] 9:25 kg/m AM eter (2) Chief Complaint And [...] Complete OB Ultrasound > 14 Ordered Weeks (87593) Date Type Problem Goal Intervention Status Start [...]
[2018-01-08] MEDS: LR 1,000 ML IV PRN ×2 (16:53→20:02)
--- NOTE | 2018-01-08 17:16 | Anesthesia Preoperative Report ---
Anesthesia Epidural/Spinal Rec - Date and Time Date: 01/08/18 Preoperative Diagnosis: labor Procedure: Labor Epidural Plan: Epidural - Vital Signs NPO since: 1400 /Para: P:3 Heart Rate: 126 - Medictaions & Allergies Inpatient Medications: Current Medications Acetaminophen (Tylenol) 500 - 1,000 mg PO Q4H PRN PRN Reason: Pain Al Hydroxide/Mg Hydroxide (Maalox Plus) 30 ml PO Q3H PRN PRN Reason: Indigestion Calcium Carbonate (Tums) 500 - 1,000 mg PO Q2H PRN PRN Reason: Indigestion Carboprost Tromethamine (Hemabate) 250 mcg IM O PRN PRN Reason: .Downtime Lactated Ringer's (Lactated Ringers) 1,000 mls @ 999 mls/hr IV .Q1H1M PRN Lidocaine HCl (Xylocaine-Mpf 1% Vial) 0.2 mg ID O PRN PRN Reason: IV Start Methylergonovine Maleate (Methergine) 0.2 mg IM O PRN Misoprostol (Cytotec) 800 mcg DE ONCE PRN Allergies/Adverse Reactions: Allergies Allergy/AdvReac Type Severity Reaction Status Date / Time NKDA Allergy Mild Uncoded 08/07/10 04:52 - Home Medications Home Medications: Home Medications Medication Instructions Recorded Confirmed Type Lactobacillus Combination No.4 2 cap PO HS #0 03/11/17 History [Probiotic] Pnv No.95/Ferrous Fum/Folic AC 1 tab PO DAILY 01/01/18 01/01/18 History [ Tablet] - Medical History Respiratory: Reports: Other (flu a month and a half ago) Gastrointestional: Reports: Gastroesophageal Reflux Disease Neuro/Musculoskeletal: Denies: Depression Other History: Reports: Now DENIES: Anesthesia Reactions - Surgical History Reproductive Surgery/Treatment: DENIES: Section Anesthesia Reactions: None Hx Family Anesthesia Reaction: No History of Motion Sickness: No - Social History Smoking Status: Never smoker Second Hand Exposure: No Substance Use Type: does not use Alcohol Intake Frequency: does not drink Hx Chewing Tobacco Use: No - Physical Exam Respiratory Exam: lungs clear Cardiovascular Exam: regular rate and rhythm - Airway Assessment Mallampati Score: I TMD: 3 Fingerbreadths Neck Extension: good Overall Assessment: no airway concerns - ASA ASA Score: 2 - Discussion Discussion: Discussed risks/options/alternatives of anesthesia and questions answered. Patient consents. Nursing pain assessment noted. Anesthesia Discussion: family member Attestation Statement: Prior to the delivery of any anesthetic medication, I examined the patient, developed the plan, obtained the patient's consent and discussed the risk and benefits of the procedure with the patient/guardian.
[2018-01-08 17:17] VITALS: BMI 27.7
[2018-01-08] MEDS ORDERED: ROPIVACAINE 1% 10MG/ML INJ 200 MG, SUFentanil 50 MCG in NS 100 ML EPI PRN (17:17)
[2018-01-08] MEDS ORDERED: NALOXONE 0.4 MG/ML INJECTION IVP PRN (17:17)
[2018-01-08] MEDS ORDERED: DiphenhydrAMINE 50 MG/ML INJECTION IVP PRN (17:17)
[2018-01-08] MEDS ORDERED: ONDANSETRON 4 MG/2 ML INJECTION IVP PRN (17:17)
[2018-01-08] MEDS ORDERED: D5LR 1,000 ML IV SCH (18:30)
[2018-01-08] MEDS ORDERED: OXYTOCIN DRIP 30 UNIT/500 ML ML IV PRN (18:34)
[2018-01-08] MEDS ORDERED: D5LR 1,000 ML IV PRN (18:34)
[2018-01-08] MEDS ORDERED: HYDROCORTISONE 2.5% CREAM 30gm RECTALLY PRN (21:51)
[2018-01-08] MEDS ORDERED: DiphenhydrAMINE 25 MG CAPSULE PO PRN (21:51)
--- NOTE | 2018-01-08 21:55 | OB/GYN Procedure Note ---
Delivery date: 01/08/18 Delivery augmentation: rupture of membranes, pitocin Delivery monitor: external FHT, external uterine Route of delivery: Laceration description: Perineal - 2nd Degree Delivery repair: vicryl Estimated blood loss (mL): 200 Anesthesia type: Epidural Disposition: floor - Baby 1 gender: Female presentation: Vertex position: Vertex-by exam Placenta delivery description: Spontaneous cord vessel description: 3 Vessels at 1 minute: 8 at 5 minutes: 9
[2018-01-08] MEDS: IBUPROFEN 800 MG TABLET PO PRN (23:33)
[2018-01-09] MEDS: HYDROCODONE/APAP 5mg/325mg TABLET PO PRN ×5 (05:58→21:48)
--- NOTE | 2018-01-09 06:42 | Anesthesia Postoperative Note ---
- Date and Time Date: 01/09/18 Time: 06:41 - Status Patient Participated in Evaluation: Patient Participated in Person Vital Signs: Temperature 97.8 F 01/08/18 17:17 Pulse Rate 71 01/09/18 00:53 Respiratory Rate 14 01/09/18 00:53 Blood Pressure 119/68 01/09/18 00:53 Respiratory Function: Airway Patent, Regular Respirations Cardiovascular Function: Regular Pulse Mental Status: Alert and Oriented Pain Intensity: 2 Hydration: Taking PO Fluids Complications During Recover: None Apparent Post Anesthesia Care Notes: ambulatory without problems - Follow-Up Instructions Instructions: Per Surgeon
[2018-01-09] MEDS: IBUPROFEN 800 MG TABLET PO PRN ×2 (08:57→17:26)
[2018-01-09] MEDS ORDERED: DOCUSATE CALCIUM 240 MG CAPSULE PO SCH (09:00)
--- NOTE | 2018-01-09 15:36 | Labor and Delivery Note ---
DATE OF SERVICE 01/08/2018 HISTORY This is a G5, P3 that presented to the office earlier today and was dilated to a 1. She presented to the office later and was noted to be 2.5 and was admitted to Maternal/Child at [facility] with spontaneous labor. She underwent artificial rupture of membranes. She was noted to have meconium and contractions seemed to space out from there. At that time she was augmented with Pitocin which reached a maximum of 8 units. At her next check at approximately 8 p.m. she was noted to be 5 cm. Her uterine contraction pattern became tachysystole. The Pitocin was cut in half and then turned off. She progressed quickly from 5 cm and was noted to be complete and +2 at approximately 9 o'clock and she pushed and commenced to deliver at 9:26. She had a spontaneous vaginal delivery of a viable female infant in the cephalic presentation over intact perineum with epidural anesthesia. A second-degree laceration was noted after delivery. There was spontaneous delivery of the placenta. Estimated blood loss 200 mL. The second-degree repair was performed in a normal fashion with 2-0 Vicryl. Respiratory was available and DeLee suction of the infant was performed. Patient and fetus tolerated this procedure well. Sponge, lap and needle counts were correct x 2. The patient stayed in the labor room in stable condition along with the infant. JOSESITO
[2018-01-09 17:40] VITALS: RESP 16
--- NOTE | 2018-01-09 19:23 | Progress Note ---
OB PP Progress Note Free Text - Date Date: 01/09/18 - Progress Note Progress Note: vss af no c/o doing well cont current care path q&a-krb
[2018-01-10] MEDS: IBUPROFEN 800 MG TABLET PO PRN ×2 (02:37→11:44)
[2018-01-10] MEDS ORDERED: DOCUSATE CALCIUM 240 MG CAPSULE PO SCH (09:00)
--- NOTE | 2018-01-10 11:42 | OB/GYN Progress Note ---
OB-Progress Note Free Text - Date Date: 01/10/18 - Progress Note Progress Note: vss af desires dc requests motrin rx q&a f/u 5-6 wks
[2018-01-10 12:03] VITALS: BP 139/79; PULSE 77; TEMP 97.7; O2SAT 98
== END 2018-01-10 12:07 | disposition home or self-care (01) | DRG 775 ==
LOC: MC 16:42 → SRG 01-09 06:16
PROVIDERS: ADMIT Obstetrics & Gynecology; ATTEND Obstetrics & Gynecology